=== PATIENT | female | born 1975 | race Caucasian/White ===

== ENCOUNTER → 2017-06-15 | Outpatient (CLI) | payer OTHER ==
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
== END ==
LOC: RAD 14:33
PROVIDERS: ATTEND Nurse Practitioner Family
DX: M54.2 Cervicalgia (principal); M25.561 Pain in right knee; M25.551 Pain in right hip; R07.89 Other chest pain
CPT/HCPCS: 71046; 72040; 72100; 73560

== ENCOUNTER → 2017-07-07 | Outpatient (CLI) | payer OTHER ==
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
== END ==
LOC: RAD 09:38
PROVIDERS: ATTEND Nurse Practitioner Family
DX: S16.1XXD Strain of muscle, fascia and tendon at neck level, subsequent encounter (principal); X58.XXXD Exposure to other specified factors, subsequent encounter; M47.892 Other spondylosis, cervical region
CPT/HCPCS: 72141

== ENCOUNTER 2021-12-08 16:33 | Observation (INO) ==
--- NOTE | 2021-12-08 17:28 | DR.H&P ---
H&P - History & Physical for Day of: H&P Date: 12/08/21 - Chief Complaint Chief Complaint: LEFT SIDE HEADACHE, VISION CHANGES, ELEVATED BLOOD PRESSURE - History of Present Illness History of Present Illness: Pt is 46WF, direct admit from Dr. Davidson's office with co left eye vision impairment and left side headace. Pt co elevated blood pressure, 170/110, pt took catapres and losartan this am. Pt had syncopal epsidoe with new onset CVA, confirmed on MRI, right internal capsule anterior limb lacunar infarct. Pt bs elevated. Pt admitted for treatment of acute illness. - Past Medical History Past Medical History: Arthritis, Hypertension - Past Surgical History Surgical History: Other Additional Surgical History: cervical spine surgery - Social History Does patient currently use any type of tobacco product: No Have you used tobacco products in the last 12 months: No Type of Tobacco Use: None Does any household member use tobacco: No Alcohol Use: None Drug Use: None Risks, benefits, and alternatives of opioids discussed: No - Medications Home Medications: No Known Drug Allergies Allergy (Verified 09/16/18 10:30) - Review of Systems Constitutional: Weakness Eyes: Vision Change (left vision impairment) ENT: No Symptoms Reported Respiratory: SOB with Excertion Cardiovascular: Palpitations, Edema Genitourinary: No Symptoms Reported Musculoskeletal: Neck Pain Neurological: Other (headache) - Physical Exam Vital Signs: Blood Pressure [Left Arm] 116/68 Oriented: Normal Eyes: Blurred Vision (left eye) Ear: Normal Nose: Normal Throat: Normal Respiratory: RLL Diminished, LLL Diminished Cardiovascular: Murmur, Edema : Normal Auscultation: Bowel Sounds: Normal Palpation: Normal Skin: Normal Musculoskeletal: Tender (cspine tender) Psychiatric: Anxiety Affect: Anxious Speech Pattern: Clear, Appropriate - Assessment/Plan (1) Syncope Status: Acute Plan: ADMIT, ADMISSION LABS, EKG AND CHEST XRAY ON ADMISSION. BS MONITORING, BP CONTROL. CARDIAC PROFILE, ASPIRIN, STATIN THERAPY. MRA, CAROTID CTA (2) Intractable cluster headache Status: Acute (3) Hypertensive urgency Status: Acute (4) Diabetes mellitus, new onset Status: Acute - Allergies Allergies/Adverse Reactions: Allergies Allergy/AdvReac Type Severity Reaction Status Date / Time No Known Drug Allergies Allergy Verified 09/16/18 10:30
[2021-12-08 18:31] LABS: BASOPHILS # (AUTO) 0.1 X10^3/uL (0.0-0.1); BASOPHILS % (AUTO) 0.8 % (0.2-1.0); EOSINOPHILS # (AUTO) 0.3 x10^3/uL (0.0-0.2); HEMATOCRIT 37.5 % (36.0-47.0); LYMPHOCYTES # (AUTO) 3.6 X10^3/uL (1.3-2.9); LYMPHOCYTES % (AUTO) 27.4 % (21.0-51.0); MEAN CORPUSCULAR HEMOGLOBIN 31.1 pg (27.0-34.0); MEAN CORPUSCULAR HGB CONC 34.7 g/dL (33.0-35.0); MEAN CORPUSCULAR VOLUME 89.7 fL (80.0-100.0); MONOCYTES % (AUTO) 7.9 % (0.0-13.0); NEUTROPHILS # (AUTO) 8.2 x10^3/uL (2.2-4.8); NEUTROPHILS % (AUTO) 61.9 % (42.0-75.0); RED BLOOD COUNT 4.18 X10^6/uL (3.5-5.4); RED CELL DISTRIBUTION WIDTH 12.7 % (11.6-16.5); WHITE BLOOD COUNT 13.2 X10^3/uL (3.6-10.0)
[2021-12-08 18:34] LABS: ERYTHROCYTE SEDIMENTATION RATE 7 MM/HOUR (0-20)
--- NOTE | 2021-12-08 18:40 | RAD ---
HISTORYRelevant Clinical Information syncope, htnSTUDYCHEST, PA/LAT ADULTCOMPARISONAugust 2020FINDINGSThe trachea is midline. The cardiac silhouette is unremarkable. The lungs are clear without focal infiltrate or effusion. The bony thorax is unremarkable.IMPRESSIONNo acute cardiopulmonary disease.Electronically signed by: DONNA GRAY (Dec 08, 2021 18:38:36)
[2021-12-08 18:42] LABS: ALANINE AMINOTRANSFERASE 28 Units/L (12-78); ALBUMIN 3.3 g/dL (3.4-5.0); ALKALINE PHOSPHATASE 91 Units/L (46-116); ASPARTATE AMINO TRANSFERASE 21 Units/L (15-37); BLOOD UREA NITROGEN 11 mg/dL (7-18); CALCIUM 8.4 mg/dL (8.5-10.1); CARBON DIOXIDE 31.7 mmol/L (21-32); CHLORIDE 105 mmol/L (98-107); CREATINE KINASE 50 Units/L (26-192); CREATININE 0.75 mg/dL (0.55-1.02); MAGNESIUM 1.7 mg/dL (1.7-2.9); SODIUM 141 mmol/L (136-145); TOTAL PROTEIN 6.9 g/dL (6.4-8.2); eGFR NON BLACK RACES > 60 (>60)
[2021-12-08] MEDS: ASPIRIN 81 MG CHEWTAB PO SCH (19:23)
[2021-12-08] MEDS: NS 1,000 ML IV 1,000 ML IV SCH (19:23)
[2021-12-08] MEDS: CELEXA PO SCH (19:23)
[2021-12-08] MEDS: NORVASC TAB 5 MG PO SCH (20:44)
[2021-12-08] MEDS: XANAX PO PRN (20:44)
[2021-12-08] MEDS: LIPITOR TAB 10 MG PO SCH (20:44)
[2021-12-08] MEDS: COZAAR PO SCH (20:44)
[2021-12-08 21:01] LABS: BILIRUBIN,URINE NEGATIVE (NEGATIVE); BLOOD/HEMOGLOBIN,URINE NEGATIVE (NEGATIVE); GLUCOSE, URINE NEGATIVE (NEGATIVE); KETONES,URINE NEGATIVE (NEGATIVE); LEUKOCYTE ESTERASE ,URINE NEGATIVE (NEGATIVE); NITRITES,URINE NEGATIVE (NEGATIVE); PROTEIN,URINE NEGATIVE (NEGATIVE); UROBILINOGEN,URINE NORMAL (NORMAL)
[2021-12-08 21:07] LABS: APPEARANCE,URINE CLEAR (CLEAR); COLOR,URINE YELLOW (YELLOW)
[2021-12-09 06:13] LABS: BASOPHILS # (AUTO) 0.1 X10^3/uL (0.0-0.1); BASOPHILS % (AUTO) 0.8 % (0.2-1.0); EOSINOPHILS # (AUTO) 0.3 x10^3/uL (0.0-0.2); EOSINOPHILS % (AUTO) 3.3 % (0.9-2.9); HEMATOCRIT 36.5 % (36.0-47.0); HEMOGLOBIN 12.9 g/dL (12.0-16.0); LYMPHOCYTES # (AUTO) 3.6 X10^3/uL (1.3-2.9); LYMPHOCYTES % (AUTO) 35.7 % (21.0-51.0); MEAN CORPUSCULAR HEMOGLOBIN 31.6 pg (27.0-34.0); MEAN CORPUSCULAR HGB CONC 35.2 g/dL (33.0-35.0); MEAN CORPUSCULAR VOLUME 89.6 fL (80.0-100.0); MEAN PLATELET VOLUME 8.2 fL (7.4-11.0); MONOCYTES # (AUTO) 0.6 x10^3/uL (0.3-0.8); MONOCYTES % (AUTO) 6.3 % (0.0-13.0); NEUTROPHILS # (AUTO) 5.4 x10^3/uL (2.2-4.8); NEUTROPHILS % (AUTO) 53.9 % (42.0-75.0); RED BLOOD COUNT 4.07 X10^6/uL (3.5-5.4); RED CELL DISTRIBUTION WIDTH 12.8 % (11.6-16.5)
[2021-12-09 06:18] LABS: ALANINE AMINOTRANSFERASE 29 Units/L (12-78); ALBUMIN 3.1 g/dL (3.4-5.0); ALKALINE PHOSPHATASE 80 Units/L (46-116); ASPARTATE AMINO TRANSFERASE 19 Units/L (15-37); BLOOD UREA NITROGEN 9 mg/dL (7-18); CALCIUM 8.1 mg/dL (8.5-10.1); CHLORIDE 104 mmol/L (98-107); COR CA(FOR HYPOALB) 8.8 mg/dL (8.5-10.1); COR NA(FOR HYPERGLY) 139 mmol/L (136-145); CREATININE 0.65 mg/dL (0.55-1.02); SODIUM 139 mmol/L (136-145); TOTAL PROTEIN 6.4 g/dL (6.4-8.2); eGFR NON BLACK RACES > 60 (>60)
[2021-12-09] MEDS: NORVASC TAB 5 MG PO SCH ×2 (09:41→16:42)
[2021-12-09] MEDS: COZAAR PO SCH ×2 (09:41→20:55)
[2021-12-09] MEDS: CELEXA PO SCH ×2 (09:41→16:42)
[2021-12-09] MEDS: ASPIRIN 81 MG CHEWTAB PO SCH ×2 (09:41→16:41)
[2021-12-09] MEDS: NS 1,000 ML IV 1,000 ML IV SCH (09:42)
[2021-12-09] MEDS ORDERED: NS 100 ML IV 100 ML ONE (10:43)
--- NOTE | 2021-12-09 12:42 | MRI ---
HISTORYSYNCOPE, HTN. NEW ONSET CVA.CT BRAIN W/O ON 11/24/21 .. MRI BRAIN W/O ON 12/01/21STUDYMRA HEAD W/O CONCOMPARISONMRI brain 12/01/[address] head 11/24/[id number] MR imaging of the head was performed using standard department protocol.Stenoses are measured using NASCET criteria.FINDINGSVertebral arteries are patent and equal in size. The basilar artery is patent and gives rise to large bilateral posterior cerebral arteries.Neither posterior communicating artery is identified.Distal cervical segment internal carotid arteries are patent. No significant carotid siphon stenosis. Anterior cerebral and middle cerebral arteries are widely patent.Normal anterior communicating artery.There is no large vessel occlusion. No aneurysm or arteriovenous malformation.IMPRESSION1. No significant abnormalityElectronically signed by: Lenard Rahman (Dec 09, 2021 12:41:56)
--- NOTE | 2021-12-09 15:18 | CT ---
HISTORYSYNCOPE, HTNSTUDYCAROTID CTACOMPARISONNone available.TECHNIQUEAxial CT angiography of the carotid arteries with intravenous contrast; 100 mL Isovue 370. Coronal, sagittal and MIP and/or 3D reconstructed images were created for further characterization by the technologist.Radiation dose: 259.90 mGy-cm total DLPFINDINGSRight common carotid artery: No clinically significant stenosis, occlusion or dissection.Right internal carotid artery: No clinically significant stenosis of the extracranial segment. No dissection or occlusion.Right external carotid artery: No occlusion or clinically significant stenosis of the origin.Right vertebral artery: No clinically significant stenosis, occlusion or dissection.Left common carotid artery: No clinically significant stenosis, occlusion or dissection..Left internal carotid artery: No clinically significant stenosis of the extracranial segment. No dissection or occlusion.Left external carotid artery: No occlusion or clinically significant stenosis of the origin.Left vertebral artery: No clinically significant stenosis. No dissection or occlusion.Bones/joints: No acute fracture.Soft tissues: Normal. No significant soft tissue swelling.Lungs: Imaged portion of the lungs are clear of focal airspace disease.IMPRESSIONNo acute abnormality, specifically, no clinically significant stenosis, occlusion or dissection involving the arterial structures of the neck.REFERENCES: NASCET CRITERIA: The degree of internal carotid artery stenosis is based on NASCET criteria. Normal is no stenosis. Mild is less than 50% stenosis. Moderate is 50-69% stenosis. Severe is 70% to 99% stenosis. Total occlusion is no detectable patent lumen.Electronically signed by: Christopher Maldonado (Dec 09, 2021 15:16:46)
[2021-12-09 15:58] VITALS: BMI 39.2
[2021-12-09] MEDS ORDERED: PLAVIX PO SCH (16:00)
--- NOTE | 2021-12-09 20:32 | VAS ---
HISTORYB/L LOWER LEG EDEMASTUDYLOWER EXT VENOUS, BILATERALCOMPARISONNoneTECHNIQUEMultiple galindo scale and color flow Doppler images of the deep venous system were obtained of the right and left lower extremity.FINDINGSThe deep venous system of the right and left lower extremities were evaluated from the level of the common femoral vein through the popliteal vein. Normal color flow and augmentation can be observed. In addition, normal compression is seen throughout the deep venous system.IMPRESSIONNegative for DVT.Electronically signed by: DONNA GRAY (Dec 09, 2021 20:30:37)
[2021-12-09] MEDS: LIPITOR TAB 10 MG PO SCH (20:55)
[2021-12-09] MEDS: XANAX PO PRN (20:56)
[2021-12-09 21:09] VITALS: BP 131/71
== END 2021-12-09 21:30 | disposition home or self-care (01) ==
LOC: MED/SURG
PROVIDERS: ADMIT Internal Medicine; ATTEND Internal Medicine
DX: R55 Syncope and collapse; I16.0 Hypertensive urgency; I10 Essential (primary) hypertension; R60.0 Localized edema; I63.9 Cerebral infarction, unspecified; R79.89 Other specified abnormal findings of blood chemistry; Z20.822 Contact with and (suspected) exposure to COVID-19; H53.8 Other visual disturbances; E11.65 Type 2 diabetes mellitus with hyperglycemia; Z79.899 Other long term (current) drug therapy; G44.001 Cluster headache syndrome, unspecified, intractable

== ENCOUNTER 2023-06-08 12:50 | Observation (INO) ==
[2023-06-08] MEDS ORDERED: NS 1,000 ML IV 1,000 ML IV ONE (13:04)
[2023-06-08] MEDS ORDERED: NS 1,000 ML IV 1,000 ML ONE (13:20)
--- NOTE | 2023-06-08 13:22 | DR.EXTPAIN ---
HPI Time seen Time Seen by Provider: 06/08/23 13:04 Complaint/Symptoms Chief Complaint Doctor Comments: 47 y/o female brought in for evaluation. Was fine yesterday, was at work. Had a syncopal episode while there, remembers being in 1 room, then awoke in her office with people around her. Went to another facility, was evaluated and discharged home. No diagnosis given.. Patient had another syncopal episode today, has not eaten yet this a.m., drank a Coke so far for breakfast. Reportedly hit her head on concrete. Having a left sided headache. Sharp severe, does not radiate. Also with associated neck pain. Denies weakness, numbness. Denies fever, chills, URI symptoms, bowel or bladder issues. No associated nausea or vomiting. Patient is on Plavix and aspirin. Has a history of CVA in 2021. Nurses notes reviewed Nurses Notes Review: Yes Source History Provided: Patient PMH PMH Past Medical History: Arthritis and Hypertension Past Surgical History: Yes Surgical History: Ortho Surgery Family History Family Medical History: Cancer and Hypertension Social History Does patient currently use any type of tobacco product: No Alcohol Use: None Do you use any recreational Drugs:: No ROS Review of Systems Constitutional: No Symptoms Reported Eyes: No Symptoms Reported ENTM: No Symptoms Reported Respiratoy: No Symptoms Reported Cardiovascular: No Symptoms Reported Gastrointestinal/Abdominal: No Symptoms Reported Genitourinary: No Symptoms Reported Neurological: Headache Musculoskeletal: No Symptoms Reported Integumentary: No Symptoms Reported Hematologic/Lymphatic: No Symptoms Reported All Other Systems: Reviewed and Negative PE Vital Signs Vitals: Vital Signs Temperature 98.4 F Pulse Rate 76 Pulse Rate 76 Pulse Rate 80 Pulse Rate 79 Pulse Rate 72 Pulse Rate 79 Pulse Rate 76 Pulse Rate 74 Pulse Rate 77 Pulse Rate 76 Pulse Rate 73 Pulse Rate 75 Pulse Rate 74 Pulse Rate 71 Pulse Rate 82 Pulse Rate 81 Pulse Rate 77 Pulse Rate 88 Respiratory Rate 14 Respiratory Rate 14 Respiratory Rate 20 Respiratory Rate 19 Respiratory Rate 13 Respiratory Rate 22 Respiratory Rate 22 Respiratory Rate 37 Respiratory Rate 20 Respiratory Rate 17 Respiratory Rate 25 Respiratory Rate 24 Respiratory Rate 21 Respiratory Rate 29 Respiratory Rate 18 Respiratory Rate 18 Respiratory Rate 17 Respiratory Rate 19 Respiratory Rate 16 Blood Pressure 124/80 Blood Pressure 124/80 Blood Pressure 137/82 Blood Pressure 137/82 Blood Pressure 132/81 Blood Pressure 95/49 Blood Pressure 132/79 Blood Pressure 118/75 Blood Pressure 117/71 Blood Pressure 117/77 Blood Pressure 118/76 Blood Pressure 117/70 Blood Pressure 126/79 O2 Sat by Pulse Oximetry 98 O2 Sat by Pulse Oximetry 98 O2 Sat by Pulse Oximetry 99 O2 Sat by Pulse Oximetry 97 O2 Sat by Pulse Oximetry 98 O2 Sat by Pulse Oximetry 97 O2 Sat by Pulse Oximetry 96 O2 Sat by Pulse Oximetry 99 O2 Sat by Pulse Oximetry 97 O2 Sat by Pulse Oximetry 95 O2 Sat by Pulse Oximetry 94 O2 Sat by Pulse Oximetry 95 O2 Sat by Pulse Oximetry 97 O2 Sat by Pulse Oximetry 97 O2 Sat by Pulse Oximetry 99 O2 Sat by Pulse Oximetry 99 O2 Sat by Pulse Oximetry 96 O2 Sat by Pulse Oximetry 98 General General Appearance: Alert and In No Apparent Distress Head Head Exam: Normal Inspection, Atraumatic and Normocephalic Eyes Eye exam: PERRL, EOMI and Other (no photophobia) ENT ENT Exam: Normal Oropharynx, Mucous Membranes Moist and TM's Normal Bilaterally Neck Neck Exam: Tenderness (paracervical muscles) COURSE Treatment Treatment: 47-year-old female with 2 episodes of syncope in the past 2 days. Had a workup at another ER yesterday, reportedly normal. Physical exam current ly benign. Workup initiated here. Patient given IV fluids. Given IV Zofran, Toradol, morphine. 1543 -labs acceptable. Has a normal CBC, CMP, lipase, troponin. Urinalysis unremarkable. Chest x-ray unremarkable. CT of the head and cervical spine do not show any acute abnormalities. Patient has a distant CVA in the past, on Plavix and aspirin. States she had syncope as presenting symptom with her previous stroke, with associated speech and vision disorder after coming to. Patient's attending trying to arrange an MRI of the brain. Would be concerned about heart issues, possible arrhythmia versus blood pressure problem. Patient remains stable here. Presented patient to her covering attending, Dr. Davidson. Would like to admit the patient overnight to the hospital to keep her on a nuclear monitoring technician. [facility] Labs Reviewed 06/08/23 13:17 06/08/23 13:17 Laboratory: WBC 8.9 X10^3/uL (3.6-10.0) 06/08/23 13:17 RBC 4.60 X10^6/uL (3.5-5.4) 06/08/23 13:17 Hgb 13.9 g/dL (12.0-16.0) 06/08/23 13:17 Hct 41.0 % (36.0-47.0) 06/08/23 13:17 MCV 89.2 fL (80.0-100.0) 06/08/23 13:17 MCH 30.3 pg (27.0-34.0) 06/08/23 13:17 MCHC 33.9 g/dL (33.0-35.0) 06/08/23 13:17 RDW 12.9 % (11.6-16.5) 06/08/23 13:17 Plt Count 281 X10^3/uL (150.0-450.0) 06/08/23 13:17 MPV 8.0 fL (7.4-11.0) 06/08/23 13:17 Neut % (Auto) 51.2 % (42.0-75.0) 06/08/23 13:17 Lymph % (Auto) 35.6 % (21.0-51.0) 06/08/23 13:17 [place] % (Auto) 6.7 % (0.0-13.0) 06/08/23 13:17 Eos % (Auto) 5.4 % (0.9-2.9) H 06/08/23 13:17 Baso % (Auto) 1.1 % (0.2-1.0) H 06/08/23 13:17 Neut # (Auto) 4.6 x10^3/uL (2.2-4.8) 06/08/23 13:17 Lymph # (Auto) 3.2 X10^3/uL (1.3-2.9) H 06/08/23 13:17 [place] # (Auto) 0.6 x10^3/uL (0.3-0.8) 06/08/23 13:17 Eos # (Auto) 0.5 x10^3/uL (0.0-0.2) H 06/08/23 13:17 Baso # (Auto) 0.1 X10^3/uL (0.0-0.1) 06/08/23 13:17 Absolute Nucleated RBC 0.0 /100WBC 06/08/23 13:17 Sodium 137 mmol/L (136-145) 06/08/23 13:17 Corrected Sodium TNP 06/08/23 13:17 Potassium 3.5 mmol/L (3.5-5.1) 06/08/23 13:17 Chloride 101 mmol/L (98-107) 06/08/23 13:17 Carbon Dioxide 32.4 mmol/L (21-32) H 06/08/23 13:17 BUN 10 mg/dL (7-18) 06/08/23 13:17 Creatinine 0.93 mg/dL (0.55-1.02) 06/08/23 13:17 Est GFR (MDRD) Af Amer > 60 (>60) 06/08/23 13:17 Est GFR (MDRD) Non-Af > 60 (>60) 06/08/23 13:17 Glucose 83 mg/dL (65-99) 06/08/23 13:17 Calcium 8.4 mg/dL (8.5-10.1) L 06/08/23 13:17 Corrected Calcium TNP 06/08/23 13:17 Total Bilirubin 0.60 mg/dL (0.2-1.0) 06/08/23 13:17 AST 13 Units/L (15-37) L 06/08/23 13:17 ALT 18 Units/L (12-78) 06/08/23 13:17 Alkaline Phosphatase 83 Units/L (46-116) 06/08/23 13:17 Troponin I High Sens 4.1 ng/L (4.0-60.0) 06/08/23 13:17 Total Protein 7.0 g/dL (6.4-8.2) 06/08/23 13:17 Albumin 3.4 g/dL (3.4-5.0) 06/08/23 13:17 Globulin 3.6 g/dL (2.5-4.5) 06/08/23 13:17 Albumin/Globulin Ratio 0.9 Ratio (1.1-2.1) L 06/08/23 13:17 Lipase 24 Units/L (16-77) 06/08/23 13:17 Specimen Type Clean catch urine 06/08/23 14:11 Urine Color Straw (YELLOW) 06/08/23 14:11 Urine Appearance Clear (CLEAR) 06/08/23 14:11 Urine pH 6.0 (5.0 - 8.0) 06/08/23 14:11 Ur Specific [place] 1.010 (1.000-1.030) 06/08/23 14:11 Urine Protein Negative (NEGATIVE) 06/08/23 14:11 Urine Glucose (UA) Negative (NEGATIVE) 06/08/23 14:11 Urine Ketones Negative (NEGATIVE) 06/08/23 14:11 Urine Blood Negative (NEGATIVE) 06/08/23 14:11 Urine Nitrite Negative (NEGATIVE) 06/08/23 14:11 Urine Bilirubin Negative (NEGATIVE) 06/08/23 14:11 Urine Urobilinogen Normal (NORMAL) 06/08/23 14:11 Ur Leukocyte Esterase Negative (NEGATIVE) 06/08/23 14:11 Opioid Opioid Risk Tool Age ([place] if 16-45): No History of Preadolescent Sexual Abuse: No Total: 0 Total Score Risk Category: Low Risk Copyright: Carlos predicting aberrant behaviors Discharge Plan Diagnosis Discharge Problem: Recurrent syncope Discharge Plan Patient Disposition: 09 ADMITTED INPATIENT Condition: Stable Prescriptions: No Action atorvastatin 10 mg tablet 10 mg PO QDAY alprazolam 1 mg tablet 1 mg PO DAILY PRN clopidogrel 75 mg tablet 75 mg PO QDAY amlodipine 5 mg tablet 5 mg PO QDAY citalopram 20 mg tablet 20 mg PO QDAY amitriptyline 25 mg tablet 25 mg PO QPM pantoprazole 40 mg tablet,delayed release (DR/EC) 40 mg PO BID losartan 100 mg tablet 100 mg PO QDAY Mounjaro 12.5 mg/0.5 mL pen injector 12.5 mg SUBCUT QWEEK Patient Comments: [NO ORIGINAL SIG] aspirin 81 mg Tablet,Chewable 81 mg PO QDAY clonidine HCl 0.1 mg tablet 0.1 mg PO QDAY PRN (Reason: hypertensive emergency) Qty: 30 0RF potassium chloride 8 mEq Capsule, Extended Release 8 meq PO QDAY PRN hydrochlorothiazide 25 mg Tablet 25 mg PO QAM PRN (Reason: Edema) Health Concerns: Post Hospitalization: new medications and changes needed to prevent readmission or further decline. Pt educated and given instructions on all concerns. Plan of Treatment: Continue with present treatment and follow up plan. Pt is to keep follow up appointment as instructed and take medications as ordered. Orders to Discharge Patient Discharge Orders: Transfer (Routine); Ordered 06/08/23 Ordered By: Constantin Maza Follow ups/Referrals Follow ups/Referrals: KATELYNN DAVIDSON [Primary Care Provider] - 3 days
[2023-06-08 13:33] LABS: BASOPHILS # (AUTO) 0.1 X10^3/uL (0.0-0.1); BASOPHILS % (AUTO) 1.1 % (0.2-1.0); EOSINOPHILS # (AUTO) 0.5 x10^3/uL (0.0-0.2); EOSINOPHILS % (AUTO) 5.4 % (0.9-2.9); HEMOGLOBIN 13.9 g/dL (12.0-16.0); LYMPHOCYTES # (AUTO) 3.2 X10^3/uL (1.3-2.9); LYMPHOCYTES % (AUTO) 35.6 % (21.0-51.0); MEAN CORPUSCULAR HEMOGLOBIN 30.3 pg (27.0-34.0); MEAN CORPUSCULAR HGB CONC 33.9 g/dL (33.0-35.0); MEAN CORPUSCULAR VOLUME 89.2 fL (80.0-100.0); MONOCYTES # (AUTO) 0.6 x10^3/uL (0.3-0.8); MONOCYTES % (AUTO) 6.7 % (0.0-13.0); NEUTROPHILS # (AUTO) 4.6 x10^3/uL (2.2-4.8); NEUTROPHILS % (AUTO) 51.2 % (42.0-75.0); PLATELET COUNT 281 X10^3/uL (150.0-450.0); RED CELL DISTRIBUTION WIDTH 12.9 % (11.6-16.5); WHITE BLOOD COUNT 8.9 X10^3/uL (3.6-10.0)
[2023-06-08 13:47] LABS: ALANINE AMINOTRANSFERASE 18 Units/L (12-78); ALBUMIN 3.4 g/dL (3.4-5.0); ALKALINE PHOSPHATASE 83 Units/L (46-116); ASPARTATE AMINO TRANSFERASE 13 Units/L (15-37); BLOOD UREA NITROGEN 10 mg/dL (7-18); CALCIUM 8.4 mg/dL (8.5-10.1); CARBON DIOXIDE 32.4 mmol/L (21-32); CHLORIDE 101 mmol/L (98-107); CREATININE 0.93 mg/dL (0.55-1.02); GLUCOSE 83 mg/dL (65-99); LIPASE 24 Units/L (16-77); POTASSIUM 3.5 mmol/L (3.5-5.1); SODIUM 137 mmol/L (136-145); eGFR NON BLACK RACES > 60 (>60)
--- NOTE | 2023-06-08 13:55 | CT ---
EXAM:HEAD (TRAUMA)HISTORY:SYNCOPE, PAIN, FALL;COMPARISON:CT head and MRI brain from 11/24/2021 and 12/01/2021 respectivelyTECHNIQUE:Multiple axial images of the head were performed from the skullbase to the vertex using standard departmental protocol. Sagittal and coronal reformatted images were performed. Dose reduction techniques including Automated Exposure Control (AEC) and adjustment of mA and kV were utilized.FINDINGS:Limitations: None significant.Ventricles and cisterns: Patent. Normal in size for age.Brain parenchyma: No parenchymal mass or hematoma. [place]-white differentiation appears preserved. Chronic right anterior limb internal capsule lacunar infarct. Mild low-attenuation change in the subcortical and deep supratentorial white matter.Extra-axial: No extra-axial collection.Orbits: The globes are intact.Sinuses: No air-fluid levels in the paranasal sinuses. No paranasal sinus wall thickening or sclerosis. The mastoid air cells are clear.Bones: The calvarium is intact.IMPRESSION:No acute intracranial abnormality.THIS IS AN ELECTRONICALLY VERIFIED FINAL REPORT06/08/2023 1:51 PM - Electronically signed by Mac Riley MD
--- NOTE | 2023-06-08 13:59 | CT ---
EXAM:CT CERVICAL SPINE WITHOUT CONTRASTHISTORY:SYNCOPE, PAIN, FALL; .COMPARISON:None.TECHNIQUE:Axial CT images were obtained through the cervical spine without contrast. Coronal and sagittal reformations were post processed.All CT scans at this facility use dose modulation, iterative reconstruction, and/or weight based dosing when appropriate to reduce radiation dose to as low as reasonably achievable.FINDINGS:C-SPINE: Previous fusion anteriorly at C5-6. Mild degenerative changes at C3-4 and C4-5. No acute fracture or dislocation. Loss of cervical lordosis.SURROUNDING SOFT TISSUES: Within normal limits.LUNG APICES: Within normal limits.IMPRESSION:No evidence of acute findings on cervical spine exam.THIS IS AN ELECTRONICALLY VERIFIED FINAL REPORT06/08/2023 1:56 PM - Electronically signed by Neno Santos MD
[2023-06-08 14:04] VITALS: BMI 31.7
--- NOTE | 2023-06-08 14:10 | RAD ---
EXAM: CHEST, 1 VIEW HISTORY: SYNCOPE, PAIN, FALL; COMPARISON: Prior study or studies were utilized for comparison during interpretation with the most relevant linda ed 12/08/2021 TECHNIQUE: CHEST, 1 VIEW FINDINGS: Chest: Lines and tubes: Cardiac leads overlie the chest. Mediastinum: Cardiac and mediastinal shadow is within normal limits for size and contour. Pulmonary vessels: No pulmonary vascular congestion. Lung rodriguez: No suspicious airspace opacity. Pleura: No effusion. No pneumothorax. Bones and soft tissues: No acute osseous or soft tissue abnormality. IMPRESSION: 1. No acute cardiopulmonary abnormality THIS IS AN ELECTRONICALLY VERIFIED FINAL REPORT 06/08/2023 2:07 PM - Electronically signed by Willem Vaughn MD
[2023-06-08 14:20] LABS: BILIRUBIN,URINE NEGATIVE (NEGATIVE); BLOOD/HEMOGLOBIN,URINE NEGATIVE (NEGATIVE); GLUCOSE, URINE NEGATIVE (NEGATIVE); KETONES,URINE NEGATIVE (NEGATIVE); LEUKOCYTE ESTERASE ,URINE NEGATIVE (NEGATIVE); NITRITES,URINE NEGATIVE (NEGATIVE); PROTEIN,URINE NEGATIVE (NEGATIVE); UROBILINOGEN,URINE NORMAL (NORMAL)
[2023-06-08 14:24] LABS: APPEARANCE,URINE CLEAR (CLEAR); COLOR,URINE STRAW (YELLOW)
[2023-06-08] MEDS ORDERED: TORADOL 30 MG VIAL IVP ONE (14:33)
[2023-06-08] MEDS ORDERED: ZOFRAN INJ 4 MG VIAL IVP ONE (14:33)
[2023-06-08] MEDS ORDERED: MORPHINE SULFATE INJ 4 MG IVP ONE (14:33)
[2023-06-08] MEDS ORDERED: TORADOL 30 MG VIAL ONE (14:36)
[2023-06-08] MEDS ORDERED: MORPHINE SULFATE INJ 4 MG ONE (14:36)
[2023-06-08] MEDS ORDERED: ZOFRAN INJ 4 MG VIAL ONE (14:36)
[2023-06-08] MEDS ORDERED: PATIENT'S HOME MEDICATION (Alprazolam 1 mg tablet) PO PRN (17:41)
[2023-06-08] MEDS ORDERED: XANAX PO PRN (17:44)
[2023-06-08] MEDS ORDERED: CONSULT PHARMACY - POTASSIUM & MAGNESIUM XX SCH (18:00)
--- NOTE | 2023-06-08 18:08 | DR.H&P ---
H&P History & Physical for Day of: H&P Date: 06/08/23 Chief Complaint Chief Complaint: PASSED OUT Allergies Allergies Allergy/AdvReac Type Severity Reaction Status Date / Time No Known Drug Allergies Allergy Verified 09/16/18 10:30 History of Present Illness History of Present Illness: 47 y/o female, ER admission after presenting for syncope. Pt was fine yesterday, was at work. Had a syncopal episode while there, remembers being in 1 room, then awoke in her office with people around her. Went to another [facility] and was evaluated and discharged home. No diagnosis given. Patient had another syncopal episode today, has not eaten yet this a.m., drank a Coke so far for breakfast. Reportedly hit her head on concrete. Having a left sided headache. Sharp severe, does not radiate. Also with associated neck pain. Denies weakness, numbness. Denies fever, chills, URI symptoms, bowel or bladder issues. No associated nausea or vomiting. Patient is on Plavix and aspirin. Has a history of CVA in 2021. Past Medical History Past Medical History: Arthritis and Hypertension Past Surgical History Surgical History: Ortho Surgery Additional Surgical History: cervical spine surgery Family History Family Medical History: Cancer and Hypertension Social History Does patient currently use any type of tobacco product: No Have you used tobacco products in the last 12 months: No Type of Tobacco Use: None Alcohol Use: None Medications Home Medications: Home Medications Medication Instructions Recorded Confirmed Type hydrochlorothiazide 25 mg tablet 25 mg PO QAM PRN Edema 12/09/21 06/08/23 History potassium chloride 8 mEq 8 meq PO QDAY PRN 12/09/21 06/08/23 History capsule,extended release alprazolam 1 mg tablet 1 mg PO DAILY PRN 06/08/23 06/08/23 History amitriptyline 25 mg tablet 25 mg PO QPM 06/08/23 06/08/23 History amlodipine 5 mg tablet 5 mg PO QDAY 06/08/23 06/08/23 History aspirin 81 mg chewable tablet 81 mg PO QDAY 06/08/23 06/08/23 History atorvastatin 10 mg tablet 10 mg PO QDAY 06/08/23 06/08/23 History citalopram 20 mg tablet 20 mg PO QDAY 06/08/23 06/08/23 History clopidogrel 75 mg tablet 75 mg PO QDAY 06/08/23 06/08/23 History losartan 100 mg tablet 100 mg PO QDAY 06/08/23 06/08/23 History pantoprazole 40 mg tablet,delayed 40 mg PO BID 06/08/23 06/08/23 History release tirzepatide 12.5 mg/0.5 mL 12.5 mg subcut QWEEK 06/08/23 06/08/23 History subcutaneous pen injector (Mounjaro) Labs 06/08/23 13:17 06/08/23 13:17 Labs: Laboratory WBC 8.9 X10^3/uL (3.6-10.0) 06/08/23 13:17 RBC 4.60 X10^6/uL (3.5-5.4) 06/08/23 13:17 Hgb 13.9 g/dL (12.0-16.0) 06/08/23 13:17 Hct 41.0 % (36.0-47.0) 06/08/23 13:17 MCV 89.2 fL (80.0-100.0) 06/08/23 13:17 MCH 30.3 pg (27.0-34.0) 06/08/23 13:17 MCHC 33.9 g/dL (33.0-35.0) 06/08/23 13:17 RDW 12.9 % (11.6-16.5) 06/08/23 13:17 Plt Count 281 X10^3/uL (150.0-450.0) 06/08/23 13:17 MPV 8.0 fL (7.4-11.0) 06/08/23 13:17 Neut % (Auto) 51.2 % (42.0-75.0) 06/08/23 13:17 Lymph % (Auto) 35.6 % (21.0-51.0) 06/08/23 13:17 Rice % (Auto) 6.7 % (0.0-13.0) 06/08/23 13:17 Eos % (Auto) 5.4 % (0.9-2.9) H 06/08/23 13:17 Baso % (Auto) 1.1 % (0.2-1.0) H 06/08/23 13:17 Neut # (Auto) 4.6 x10^3/uL (2.2-4.8) 06/08/23 13:17 Lymph # (Auto) 3.2 X10^3/uL (1.3-2.9) H 06/08/23 13:17 Rice # (Auto) 0.6 x10^3/uL (0.3-0.8) 06/08/23 13:17 Eos # (Auto) 0.5 x10^3/uL (0.0-0.2) H 06/08/23 13:17 Baso # (Auto) 0.1 X10^3/uL (0.0-0.1) 06/08/23 13:17 Absolute Nucleated RBC 0.0 /100WBC 06/08/23 13:17 Sodium 137 mmol/L (136-145) 06/08/23 13:17 Corrected Sodium TNP 06/08/23 13:17 Potassium 3.5 mmol/L (3.5-5.1) 06/08/23 13:17 Chloride 101 mmol/L (98-107) 06/08/23 13:17 Carbon Dioxide 32.4 mmol/L (21-32) H 06/08/23 13:17 BUN 10 mg/dL (7-18) 06/08/23 13:17 Creatinine 0.93 mg/dL (0.55-1.02) 06/08/23 13:17 Est GFR (MDRD) Af Amer > 60 (>60) 06/08/23 13:17 Est GFR (MDRD) Non-Af > 60 (>60) 06/08/23 13:17 Glucose 83 mg/dL (65-99) 06/08/23 13:17 Calcium 8.4 mg/dL (8.5-10.1) L 06/08/23 13:17 Corrected Calcium TNP 06/08/23 13:17 Total Bilirubin 0.60 mg/dL (0.2-1.0) 06/08/23 13:17 AST 13 Units/L (15-37) L 06/08/23 13:17 ALT 18 Units/L (12-78) 06/08/23 13:17 Alkaline Phosphatase 83 Units/L (46-116) 06/08/23 13:17 Troponin I High Sens 4.1 ng/L (4.0-60.0) 06/08/23 13:17 Total Protein 7.0 g/dL (6.4-8.2) 06/08/23 13:17 Albumin 3.4 g/dL (3.4-5.0) 06/08/23 13:17 Globulin 3.6 g/dL (2.5-4.5) 06/08/23 13:17 Albumin/Globulin Ratio 0.9 Ratio (1.1-2.1) L 06/08/23 13:17 Lipase 24 Units/L (16-77) 06/08/23 13:17 Specimen Type Clean catch urine 06/08/23 14:11 Urine Color Straw (YELLOW) 06/08/23 14:11 Urine Appearance Clear (CLEAR) 06/08/23 14:11 Urine pH 6.0 (5.0 - 8.0) 06/08/23 14:11 Ur Specific [place] 1.010 (1.000-1.030) 06/08/23 14:11 Urine Protein Negative (NEGATIVE) 06/08/23 14:11 Urine Glucose (UA) Negative (NEGATIVE) 06/08/23 14:11 Urine Ketones Negative (NEGATIVE) 06/08/23 14:11 Urine Blood Negative (NEGATIVE) 06/08/23 14:11 Urine Nitrite Negative (NEGATIVE) 06/08/23 14:11 Urine Bilirubin Negative (NEGATIVE) 06/08/23 14:11 Urine Urobilinogen Normal (NORMAL) 06/08/23 14:11 Ur Leukocyte Esterase Negative (NEGATIVE) 06/08/23 14:11 Review of Systems Constitutional: Weakness Eyes: Vision Change ENT: No Symptoms Reported Respiratory: No Symptoms Reported Cardiovascular: No Symptoms Reported Gastrointestinal: No Symptoms Reported Genitourinary: No Symptoms Reported Musculoskeletal: Neck Pain Skin: No Symptoms Reported Neurological: Weakness and Other (headache, syncope) Physical Exam Vital Signs: Vital Signs Temperature 98.4 F Pulse Rate 74 Pulse Rate 76 Pulse Rate 76 Pulse Rate 80 Pulse Rate 79 Pulse Rate 72 Pulse Rate 79 Pulse Rate 76 Pulse Rate 74 Pulse Rate 77 Pulse Rate 76 Pulse Rate 73 Pulse Rate 75 Pulse Rate 74 Pulse Rate 71 Pulse Rate 82 Pulse Rate 81 Pulse Rate 77 Pulse Rate 88 Respiratory Rate 17 Respiratory Rate 14 Respiratory Rate 14 Respiratory Rate 20 Respiratory Rate 19 Respiratory Rate 13 Respiratory Rate 22 Respiratory Rate 22 Respiratory Rate 37 Respiratory Rate 20 Respiratory Rate 17 Respiratory Rate 25 Respiratory Rate 18 Respiratory Rate 24 Respiratory Rate 18 Respiratory Rate 21 Respiratory Rate 29 Respiratory Rate 18 Respiratory Rate 18 Respiratory Rate 17 Respiratory Rate 19 Respiratory Rate 16 Blood Pressure 124/80 Blood Pressure 124/80 Blood Pressure 124/80 Blood Pressure 137/82 Blood Pressure 137/82 Blood Pressure 132/81 Blood Pressure 95/49 Blood Pressure 132/79 Blood Pressure 118/75 Blood Pressure 117/71 Blood Pressure 117/77 Blood Pressure 118/76 Blood Pressure 117/70 Blood Pressure 126/79 O2 Sat by Pulse Oximetry 98 O2 Sat by Pulse Oximetry 98 O2 Sat by Pulse Oximetry 98 O2 Sat by Pulse Oximetry 99 O2 Sat by Pulse Oximetry 97 O2 Sat by Pulse Oximetry 98 O2 Sat by Pulse Oximetry 97 O2 Sat by Pulse Oximetry 96 O2 Sat by Pulse Oximetry 99 O2 Sat by Pulse Oximetry 97 O2 Sat by Pulse Oximetry 95 O2 Sat by Pulse Oximetry 94 O2 Sat by Pulse Oximetry 95 O2 Sat by Pulse Oximetry 97 O2 Sat by Pulse Oximetry 97 O2 Sat by Pulse Oximetry 99 O2 Sat by Pulse Oximetry 99 O2 Sat by Pulse Oximetry 96 O2 Sat by Pulse Oximetry 98 Oriented: Time and Place Eyes: Normal Ear: Normal Nose: Normal Throat: Dry Respiratory: Clear Throughout Cardiovascular: Normal Auscultation: Bowel Sounds: Normal Palpation: Normal Tenderness: Normal Skin: Normal Musculoskeletal: Tender (perispinal, c spine) Psychiatric: Anxiety Affect: Anxious Speech Pattern: Clear and Appropriate Assessment/Plan (1) Recurrent syncope: Narrative Support Text: admit, ct head on admission CE and BP and BS control Cardiac monitoring, MRI brain in the AM verify home medications telemetry Status: Acute (2) Hypertension: Qualifiers: Hypertension type: essential hypertension Qualified Code(s): I10 - Essential (primary) hypertension Status: Acute (3) Headache: Qualifiers: Headache chronicity pattern: acute headache Headache type: unspecified Intractability: intractable Qualified Code(s): R51 - Headache Status: Acute (4) Diabetes 1.5, managed as type 2: Status: Acute (5) History of CVA (cerebrovascular accident): Status: Acute (6) AVILA (generalized anxiety disorder): Status: Acute
[2023-06-08] MEDS: TYLENOL 325 MG TAB PO PRN (20:13)
[2023-06-08] MEDS: MAG-OX TAB PO SCH ×2 (20:13→21:14)
[2023-06-08] MEDS: PROTONIX TAB 40 MG PO SCH (20:14)
[2023-06-08] MEDS ORDERED: ELAVIL PO SCH (21:00)
[2023-06-08] MEDS ORDERED: K-DUR TAB 20 MEQ PO SCH (21:00)
[2023-06-08] MEDS ORDERED: XANAX PO SCH (21:00)
[2023-06-08] MEDS ORDERED: MAG-OX TAB ONE (21:09)
[2023-06-09 06:36] LABS: BASOPHILS # (AUTO) 0.1 X10^3/uL (0.0-0.1); BASOPHILS % (AUTO) 1.2 % (0.2-1.0); EOSINOPHILS # (AUTO) 0.5 x10^3/uL (0.0-0.2); EOSINOPHILS % (AUTO) 6.4 % (0.9-2.9); HEMATOCRIT 39.3 % (36.0-47.0); HEMOGLOBIN 13.3 g/dL (12.0-16.0); LYMPHOCYTES # (AUTO) 3.3 X10^3/uL (1.3-2.9); LYMPHOCYTES % (AUTO) 41.5 % (21.0-51.0); MEAN CORPUSCULAR HEMOGLOBIN 30.4 pg (27.0-34.0); MEAN CORPUSCULAR VOLUME 89.6 fL (80.0-100.0); MEAN PLATELET VOLUME 7.7 fL (7.4-11.0); MONOCYTES # (AUTO) 0.7 x10^3/uL (0.3-0.8); MONOCYTES % (AUTO) 8.2 % (0.0-13.0); NEUTROPHILS # (AUTO) 3.4 x10^3/uL (2.2-4.8); NEUTROPHILS % (AUTO) 42.7 % (42.0-75.0); PLATELET COUNT 257 X10^3/uL (150.0-450.0); RED BLOOD COUNT 4.38 X10^6/uL (3.5-5.4); RED CELL DISTRIBUTION WIDTH 12.9 % (11.6-16.5)
[2023-06-09 07:03] LABS: ALANINE AMINOTRANSFERASE 16 Units/L (12-78); ALKALINE PHOSPHATASE 76 Units/L (46-116); ASPARTATE AMINO TRANSFERASE 13 Units/L (15-37); BLOOD UREA NITROGEN 13 mg/dL (7-18); CALCIUM 8.2 mg/dL (8.5-10.1); CARBON DIOXIDE 30.2 mmol/L (21-32); CHLORIDE 106 mmol/L (98-107); CREATINE KINASE 23 Units/L (26-192); CREATININE 0.89 mg/dL (0.55-1.02); GLUCOSE 86 mg/dL (65-99); POTASSIUM 4.2 mmol/L (3.5-5.1); SODIUM 141 mmol/L (136-145); TOTAL PROTEIN 6.4 g/dL (6.4-8.2); eGFR NON BLACK RACES > 60 (>60)
[2023-06-09] MEDS ORDERED: MORPHINE SULFATE INJ 2 MG INJ IVP PRN (07:10)
[2023-06-09] MEDS ORDERED: NORCO 5/325 MG TAB PO PRN (07:10)
[2023-06-09] MEDS ORDERED: NORCO 5/325 MG TAB ONE (07:12)
[2023-06-09] MEDS ORDERED: MORPHINE SULFATE INJ 2 MG INJ ONE (07:18)
[2023-06-09] MEDS ORDERED: ZOFRAN INJ 4 MG VIAL ONE (07:18)
[2023-06-09] MEDS ORDERED: ZOFRAN INJ 4 MG VIAL IVP PRN (07:19)
[2023-06-09 07:21] LABS: MAGNESIUM 2.2 mg/dL (2.0-2.9)
[2023-06-09 07:39] VITALS: TEMP 98.1
[2023-06-09] MEDS ORDERED: PROTONIX TAB 40 MG PO ONE (08:06)
[2023-06-09] MEDS ORDERED: ALPRAZOLAM ODT ONE (08:06)
[2023-06-09] MEDS ORDERED: NORVASC TAB 5 MG ONE (08:06)
[2023-06-09] MEDS ORDERED: PLAVIX ONE (08:06)
[2023-06-09] MEDS ORDERED: ASPIRIN 81 MG CHEWTAB ONE (08:06)
[2023-06-09] MEDS: PROTONIX TAB 40 MG PO SCH (08:12)
[2023-06-09] MEDS: COZAAR PO SCH ×2 (08:13→08:14)
[2023-06-09] MEDS ORDERED: ALPRAZOLAM ODT PO PRN (08:27)
[2023-06-09] MEDS ORDERED: ASPIRIN 81 MG CHEWTAB PO SCH (09:00)
[2023-06-09] MEDS ORDERED: PATIENT'S HOME MEDICATION (Losartan 100 mg tablet) PO SCH (09:00)
[2023-06-09] MEDS ORDERED: PLAVIX PO SCH (09:00)
[2023-06-09] MEDS ORDERED: ALPRAZOLAM ODT PO SCH (09:00)
[2023-06-09] MEDS ORDERED: LIPITOR TAB 10 MG PO SCH (09:00)
[2023-06-09] MEDS ORDERED: CELEXA PO SCH (09:00)
[2023-06-09] MEDS ORDERED: NORVASC TAB 5 MG PO SCH (09:00)
[2023-06-09 12:41] VITALS: BP 101/59; PULSE 74; O2SAT 98
[2023-06-09] MEDS ORDERED: TYLENOL 325 MG TAB PO ONE (12:41)
[2023-06-09 12:44] VITALS: RESP 20
[2023-06-09] MEDS: TYLENOL 325 MG TAB PO PRN (12:44)
--- NOTE | 2023-06-09 14:43 | MRI ---
EXAM:BRAIN W/O CONHISTORY:syncope, hx cva;COMPARISON:CT head from 06/08/2023. MRI brain from 12/01/2021.TECHNIQUE:Multiplanar multi-sequence MRI of the brain was obtained utilizing standard departmental protocol. Sagittal and axial T1 weighted images were obtained. Axial T2 and flair weighted images were performed as well. Axial diffusion weighted and ADC trace mapping was performed.FINDINGS:Mildly suboptimal image noise on the axial FLAIR and T2 sequences.Diffusion imaging: Normal, no acute infarct.Susceptibility weighted imaging: No abnormal susceptibility artifact.Brain volume: Appropriate for age.Ventricles and basal cisterns: Normal for age.Extra-axial spaces: No extra-axial collection.Cerebral parenchyma: No mass, hematoma, or mass effect. Mild moderate amount of T2 and FLAIR hyperintensities in the subcortical and deep supratentorial white matter. Small chronic anterior limb internal capsule lacunar infarct.Pituitary and other sagittal midline structures: Normal.Visualized orbits: Normal.Paranasal sinuses and mastoid air cells: Clear.Bones: Intact.Other: None.IMPRESSION:No abnormal restricted diffusion to suggest acute infarct.Stable mild to moderate T2 and FLAIR hyperintensities in the subcortical and deep supratentorial white matter, most commonly attributed to chronic small vessel disease but other etiologies such as demyelinating disease not excluded.THIS IS AN ELECTRONICALLY VERIFIED FINAL REPORT06/09/2023 2:19 PM - Electronically signed by Mac Riley MD
== END 2023-06-09 15:45 | disposition home or self-care (01) ==
LOC: ER 12:50 → U 12:50
PROVIDERS: ADMIT Internal Medicine; ATTEND Internal Medicine
DX: R55 Syncope and collapse; Z86.73 Personal history of transient ischemic attack (TIA), and cerebral infarction without residual deficits; Z79.01 Long term (current) use of anticoagulants; E11.65 Type 2 diabetes mellitus with hyperglycemia; F41.1 Generalized anxiety disorder; I10 Essential (primary) hypertension; M50.30 Other cervical disc degeneration, unspecified cervical region; G43.809 Other migraine, not intractable, without status migrainosus; K21.9 Gastro-esophageal reflux disease without esophagitis

== ENCOUNTER 2024-05-11 10:33 | Observation (INO) ==
[2024-05-11] MEDS: NS 1,000 ML IV 1,000 ML IV SCH (10:46)
[2024-05-11] MEDS ORDERED: OMNIPAQUE 350 mg/mL 100 mL BTL 100 ML ONE (10:55)
[2024-05-11 10:58] LABS: BASOPHILS # (AUTO) 0.1 X10^3/uL (0.0-0.1); BASOPHILS % (AUTO) 0.8 % (0.2-1.0); EOSINOPHILS # (AUTO) 0.3 x10^3/uL (0.0-0.2); EOSINOPHILS % (AUTO) 2.7 % (0.9-2.9); HEMATOCRIT 43.8 % (36.0-47.0); HEMOGLOBIN 14.8 g/dL (12.0-16.0); LYMPHOCYTES % (AUTO) 29.5 % (21.0-51.0); MEAN CORPUSCULAR HEMOGLOBIN 31.2 pg (27.0-34.0); MEAN CORPUSCULAR HGB CONC 33.7 g/dL (33.0-35.0); MEAN CORPUSCULAR VOLUME 92.6 fL (80.0-100.0); MEAN PLATELET VOLUME 8.4 fL (7.4-11.0); MONOCYTES # (AUTO) 0.8 x10^3/uL (0.3-0.8); PLATELET COUNT 340 X10^3/uL (150.0-450.0); RED BLOOD COUNT 4.73 X10^6/uL (3.5-5.4); RED CELL DISTRIBUTION WIDTH 13.3 % (11.6-16.5); WHITE BLOOD COUNT 10.1 X10^3/uL (3.6-10.0)
[2024-05-11] MEDS ORDERED: NS 1,000 ML IV 1,000 ML IV SCH (11:00)
[2024-05-11 11:12] LABS: ALANINE AMINOTRANSFERASE 21 Units/L (12-78); ALBUMIN 3.6 g/dL (3.4-5.0); ALKALINE PHOSPHATASE 88 Units/L (46-116); ASPARTATE AMINO TRANSFERASE 16 Units/L (15-37); BLOOD UREA NITROGEN 11 mg/dL (7-18); CALCIUM 8.6 mg/dL (8.5-10.1); CARBON DIOXIDE 28.2 mmol/L (21-32); CHLORIDE 106 mmol/L (98-107); CHOL/HDL RATIO 3.2 (0.0-5.0); CHOLESTEROL 183 mg/dL (0-200); CREATINE KINASE 26 Units/L (26-192); CREATININE 0.94 mg/dL (0.55-1.02); GLUCOSE 110 mg/dL (65-99); HDL CHOLESTEROL 57 mg/dL (40-60); POTASSIUM 3.5 mmol/L (3.5-5.1); SODIUM 141 mmol/L (136-145); TOTAL PROTEIN 7.3 g/dL (6.4-8.2); TRIGLYCERIDES 64 mg/dL (0-150); eGFR NON BLACK RACES > 60 (>60)
--- NOTE | 2024-05-11 11:18 | EKG ---
Test Reason : unresponsive Blood Pressure : */* mmHG Vent. Rate : 79 BPM Atrial Rate : 79 BPM P-R Int : 142 ms QRS Dur : 76 ms QT Int : 384 ms P-R-T Axes : 54 30 36 degrees QTc Int : 440 ms Normal sinus rhythm Low voltage QRS Cannot rule out Anterior infarct , age undetermined Abnormal ECG No previous ECGs available Confirmed by Young Meyers MD ([id number]) on 05/12/2024 9:30:33 AM Referred By: Confirmed By: Young Meyers MD
[2024-05-11 11:19] LABS: INR 1.01 (0.8-1.3)
--- NOTE | 2024-05-11 12:03 | CT ---
EXAMINATION: BRAIN W/O CON HISTORY: hx stroke, pt states headache to left side of head c/o weakness in right upper and lower extremity; COMPARISON: CT brain 06/08/2023 TECHNIQUE: Contiguous noncontrast axial CT images of the brain. Images are reviewed in the axial imaging plane with reformatted sagittal and coronal images.The above CT scan was done with automated exposure contr ol and the mA and kV was adjusted to obtain quality images according to patient size. FINDINGS: No evidence of acute intracranial hemorrhage, mass effect, or midline shift. Ventricles normal size and shape. Calvarium appears intact. IMPRESSION: No acute intracranial process seen. Recommend further evaluation with an MRI of the brain if this is of continued clinical concern. THIS IS AN ELECTRONICALLY VERIFIED FINAL REPORT 05/11/2024 11:59 AM - Electronically signed by Michelle Rowland MD
[2024-05-11] MEDS: ZOFRAN INJ 4 MG VIAL IVP ONE (12:42)
[2024-05-11] MEDS: MORPHINE SULFATE INJ 4 MG IVP ONE (12:42)
[2024-05-11 12:59] LABS: APPEARANCE,URINE CLEAR (CLEAR); BILIRUBIN,URINE NEGATIVE (NEGATIVE); BLOOD/HEMOGLOBIN,URINE NEGATIVE (NEGATIVE); COLOR,URINE YELLOW (YELLOW); GLUCOSE, URINE NEGATIVE (NEGATIVE); KETONES,URINE NEGATIVE (NEGATIVE); LEUKOCYTE ESTERASE ,URINE 1+ (NEGATIVE); NITRITES,URINE NEGATIVE (NEGATIVE); PROTEIN,URINE 1+ (NEGATIVE); UROBILINOGEN,URINE NORMAL (NORMAL)
[2024-05-11 13:03] LABS: BACTERIA,URINE 1+ /HPF (NEGATIVE); RBC,URINE NONE SEEN /HPF (0-3); SQUAMOUS EPITHELIAL CELL,UR FEW /HPF (NEGATIVE)
--- NOTE | 2024-05-11 13:22 | CT ---
EXAM: CAROTID CTA HISTORY: hx stroke, pt states headache to left side of head c/o weakness in right upper and lower extremity; COMPARISON: None TECHNIQUE: Multiple CT axial images of the neck and head were obtained after using IV contrast. 3D reconstructio ns utilizing axial MIPS imaging was performed and reviewed. Dose reduction techniques including Auto mated Exposure Control (AEC) and adjustment of mA and kV were utilized. Stenoses are measured using NASCET criteria. FINDINGS: Aorta has a normal caliber with no aneurysm, dissection, or stenosis. The usual three-vessel anatomy is present off the aortic arch. No stenosis at the origins of the great vessels. There is no subcl domenic or proximal axillary artery stenosis. Right common carotid artery widely patent. There is no carotid bulb plaque disease or stenosis. Cer vical segment right internal carotid artery is patent to the skull base. Left common carotid artery is widely patent. There is no carotid bulb plaque disease or stenosis. C ervical segment left internal carotid artery is patent to the skull base. The vertebral arteries are patent without significant occlusive disease. Upper lungs clear. The thyroid has a normal size and configuration. Left cervical lymphadenopathy i s present measuring up to 10 mm in short axis dimension. Smaller lymph nodes in the right neck. No fluid in the sinuses or mucosal thickening to suggest sinusitis. There is no mastoid effusion. Degenerative spondylitic changes are present in the spine. Fixation hardware is present at C5-6 IMPRESSION: 1. No carotid bulb plaque disease or stenosis 2. Left cervical lymphadenopathy THIS IS AN ELECTRONICALLY VERIFIED FINAL REPORT 05/11/2024 1:18 PM - Electronically signed by Lenard Rahman MD
--- NOTE | 2024-05-11 13:24 | CT ---
EXAM: BRAIN CTA HISTORY: hx stroke, pt states headache to left side of head c/o weakness in right upper and lower extremity; COMPARISON: Noncontrast head CT 05/11/2024 TECHNIQUE: Multiple CT axial images of the brain were obtained after using IV contrast. 3D reconstructions utili zing axial MIPS imaging was performed and reviewed. Dose reduction techniques including Automated Ex posure Control (AEC) and adjustment of mA and kV were utilized. Stenoses are measured using NASCET criteria. FINDINGS: Vertebral arteries are patent. Basilar artery widely patent and gives rise to large bilateral machine heddle cleaner ior cerebral arteries. Neither posterior communicating artery is identified. Probable normal anterior communicating artery. Distal cervical segment internal carotid arteries are patent. There is no significant carotid siphon stenosis. Anterior cerebral and middle cerebral arteries are widely patent. There is no large vessel occlusion. No aneurysms or arteriovenous malformation. IMPRESSION: 1. No significant occlusive disease THIS IS AN ELECTRONICALLY VERIFIED FINAL REPORT 05/11/2024 1:21 PM - Electronically signed by Lenard Rahman MD
--- NOTE | 2024-05-11 14:08 | DR.GENAD ---
HPI Time Seen Time Seen by Provider: 05/11/24 10:37 PCP Primary Care Physician: María Cook Complaint/Symptoms Chief Complaint Doctors Comments: 48-year-old female, history of CVA 2y ago, followed by the [facility], brought in by her son for acute onset of right- sided weakness in her right upper extremity and right lower extremity. Son was taking her to a doctor's appointment, patient began having severe weakness accompanied by headache. Upon arrival to the ER, complains of persistent 8 out of 10 headache, and persistent right-sided weakness. Denies other complaints at this time., Chief Complaint:: Patient arrived POV. Patient semi responsive stating she has a left sided headache that started this morning. Patient states the she feels weakness on her right side. Patient states she does have a history of strokes. Patient states she was taking plavix & her doctor stopped it a month ago. COVID-19 Coronavirus risk:travel/contact w/high risk person: No Has patient experienced Coronavirus symptoms: No Source History Provided: Patient Timing Onset of Chief Complaint: 05/11/24 PMH PMH Past Medical History: Yes Past Medical History: Arthritis, CVA and Hypertension Past Surgical History: Yes Surgical History: Ortho Surgery Family History History of Family Medical Conditions: Yes Family Medical History: Cancer and Hypertension Social History Alcohol Use: None Do you use any recreational Drugs:: No Lives With: Family Lives Where: Home Travel Risk Coronavirus risk:travel/contact w/high risk person: No Has patient experienced Coronavirus symptoms: No Infectious screening Have you traveled outside the country in the last 6 months?: No Isolation: Standard ROS Review of Systems Neurological: Headache and Weakness (RUE & RLE); negative Numbness, Paresthesia, Seizure, Tingling or Speech Problem PE Vital Signs Vitals: Vital Signs Temperature 98.1 F Pulse Rate 68 Pulse Rate 70 Pulse Rate 77 Pulse Rate 71 Pulse Rate 72 Pulse Rate 83 Pulse Rate 79 Pulse Rate 72 Pulse Rate 74 Pulse Rate 77 Pulse Rate 80 Pulse Rate 84 Pulse Rate 79 Pulse Rate 80 Pulse Rate 91 Pulse Rate 102 Respiratory Rate 16 Respiratory Rate 14 Respiratory Rate 18 Respiratory Rate 21 Respiratory Rate 17 Respiratory Rate 19 Respiratory Rate 21 Respiratory Rate 29 Respiratory Rate 16 Respiratory Rate 17 Respiratory Rate 20 Respiratory Rate 12 Respiratory Rate 15 Respiratory Rate 16 Respiratory Rate 17 Respiratory Rate 16 Blood Pressure 111/68 Blood Pressure 115/72 Blood Pressure 119/68 Blood Pressure 136/77 Blood Pressure 135/81 Blood Pressure 160/94 O2 Sat by Pulse Oximetry 96 O2 Sat by Pulse Oximetry 95 O2 Sat by Pulse Oximetry 96 O2 Sat by Pulse Oximetry 95 O2 Sat by Pulse Oximetry 97 O2 Sat by Pulse Oximetry 97 O2 Sat by Pulse Oximetry 97 O2 Sat by Pulse Oximetry 98 O2 Sat by Pulse Oximetry 97 O2 Sat by Pulse Oximetry 97 O2 Sat by Pulse Oximetry 97 O2 Sat by Pulse Oximetry 100 O2 Sat by Pulse Oximetry 99 O2 Sat by Pulse Oximetry 99 O2 Sat by Pulse Oximetry 100 General Limitations: No Limitations General Appearance: Alert and In No Apparent Distress Head Head Exam: Normal Inspection Eyes Eye exam: Normal Appearance ENT ENT Exam: Normal Exam External Ear Exam: Normal External Inspection TM/Canal Exam: Bilateral: Normal Nose Exam: Normal Nose Exam Mouth Exam: Normal Inspection Throat Exam: Normal Inspection Neck Neck Exam: Normal Inspection Chest Chest Inspection: Normal Inspection Respiratory Respiratory Exam: Normal Lung Sounds Bilat Respiratory Exam: Bilateral: Clear to Auscultation Cardiovascular Cardiovascular Exam: Regular Rate and Normal Rhythm Abdominal Exam Abdominal Exam: Normal Inspection, Normal Bowel Sounds and Soft Extremities Extremities Exam: Normal Inspection Back Back Exam: Normal Inspection Neurologic Neurological Exam: Alert, Oriented X3, CN II-XII Intact and Motor Sensory Deficit (3+/5 strength in RUE & RLE) Psychiatric Psychiatric Exam: Normal Affect and Normal Mood Skin Skin Exam: Warm, Dry, Intact and Normal Color MDM Additional Information Findings: evaluated by tele-neuro, does not meet criteria for thrombolytic. ROR Labs Reviewed Laboratory Results Reviewed?: Yes 05/11/24 10:38 05/11/24 10:38 Laboratory: WBC 10.1 X10^3/uL (3.6-10.0) H 05/11/24 10:38 RBC 4.73 X10^6/uL (3.5-5.4) 05/11/24 10:38 Hgb 14.8 g/dL (12.0-16.0) 05/11/24 10:38 Hct 43.8 % (36.0-47.0) 05/11/24 10:38 MCV 92.6 fL (80.0-100.0) 05/11/24 10:38 MCH 31.2 pg (27.0-34.0) 05/11/24 10:38 MCHC 33.7 g/dL (33.0-35.0) 05/11/24 10:38 RDW 13.3 % (11.6-16.5) 05/11/24 10:38 Plt Count 340 X10^3/uL (150.0-450.0) 05/11/24 10:38 MPV 8.4 fL (7.4-11.0) 05/11/24 10:38 Neut % (Auto) 59.0 % (42.0-75.0) 05/11/24 10:38 Lymph % (Auto) 29.5 % (21.0-51.0) 05/11/24 10:38 [place] % (Auto) 8.0 % (0.0-13.0) 05/11/24 10:38 Eos % (Auto) 2.7 % (0.9-2.9) 05/11/24 10:38 Baso % (Auto) 0.8 % (0.2-1.0) 05/11/24 10:38 Neut # (Auto) 6.0 x10^3/uL (2.2-4.8) H 05/11/24 10:38 Lymph # (Auto) 3.0 X10^3/uL (1.3-2.9) H 05/11/24 10:38 [place] # (Auto) 0.8 x10^3/uL (0.3-0.8) 05/11/24 10:38 Eos # (Auto) 0.3 x10^3/uL (0.0-0.2) H 05/11/24 10:38 Baso # (Auto) 0.1 X10^3/uL (0.0-0.1) 05/11/24 10:38 Absolute Nucleated RBC 0.2 /100WBC 05/11/24 10:38 PT 13.1 SECONDS (11.8-14.3) 05/11/24 10:38 INR Target Range - 05/11/24 10:38 INR 1.01 (0.8-1.3) 05/11/24 10:38 APTT 29.3 SECONDS (22.9-36.5) 05/11/24 10:38 PTT Comment - 05/11/24 10:38 Fibrinogen 298 mg/dL (239-489) 05/11/24 10:38 Sodium 141 mmol/L (136-145) 05/11/24 10:38 Corrected Sodium TNP 05/11/24 10:38 Potassium 3.5 mmol/L (3.5-5.1) 05/11/24 10:38 Chloride 106 mmol/L (98-107) 05/11/24 10:38 Carbon Dioxide 28.2 mmol/L (21-32) 05/11/24 10:38 BUN 11 mg/dL (7-18) 05/11/24 10:38 Creatinine 0.94 mg/dL (0.55-1.02) 05/11/24 10:38 Est GFR (MDRD) Af Amer > 60 (>60) 05/11/24 10:38 Est GFR (MDRD) Non-Af > 60 (>60) 05/11/24 10:38 Glucose 110 mg/dL (65-99) H 05/11/24 10:38 Calcium 8.6 mg/dL (8.5-10.1) 05/11/24 10:38 Corrected Calcium TNP 05/11/24 10:38 Total Bilirubin 0.40 mg/dL (0.2-1.0) 05/11/24 10:38 AST 16 Units/L (15-37) 05/11/24 10:38 ALT 21 Units/L (12-78) 05/11/24 10:38 Alkaline Phosphatase 88 Units/L (46-116) 05/11/24 10:38 Creatine Kinase 26 Units/L (26-192) 05/11/24 10:38 Troponin I High Sens < 4.0 ng/L (4.0-60.0) L 05/11/24 10:38 Total Protein 7.3 g/dL (6.4-8.2) 05/11/24 10:38 Albumin 3.6 g/dL (3.4-5.0) 05/11/24 10:38 Globulin 3.7 g/dL (2.5-4.5) 05/11/24 10:38 Albumin/Globulin Ratio 1.0 Ratio (1.1-2.1) L 05/11/24 10:38 Triglycerides 64 mg/dL (0-150) 05/11/24 10:38 Cholesterol 183 mg/dL (0-200) 05/11/24 10:38 LDL Cholesterol, Calc 113 mg/dL (0-100) H 05/11/24 10:38 HDL Cholesterol 57 mg/dL (40-60) 05/11/24 10:38 Cholesterol/HDL Ratio 3.2 (0.0-5.0) 05/11/24 10:38 Specimen Type Clean catch urine 05/11/24 12:39 Urine Color Yellow (YELLOW) 05/11/24 12:39 Urine Appearance Clear (CLEAR) 05/11/24 12:39 Urine pH 7.0 (5.0 - 8.0) 05/11/24 12:39 Ur Specific [place] 1.010 (1.000-1.030) 05/11/24 12:39 Urine Protein 1+ (NEGATIVE) 05/11/24 12:39 Urine Glucose (UA) Negative (NEGATIVE) 05/11/24 12:39 Urine Ketones Negative (NEGATIVE) 05/11/24 12:39 Urine Blood Negative (NEGATIVE) 05/11/24 12:39 Urine Nitrite Negative (NEGATIVE) 05/11/24 12:39 Urine Bilirubin Negative (NEGATIVE) 05/11/24 12:39 Urine Urobilinogen Normal (NORMAL) 05/11/24 12:39 Ur Leukocyte Esterase 1+ (NEGATIVE) 05/11/24 12:39 Urine RBC None seen /HPF (0-3) 05/11/24 12:39 Urine WBC 3-5 /HPF (0-5) 05/11/24 12:39 Ur Squamous Epith Cells Few /HPF (NEGATIVE) 05/11/24 12:39 Urine Bacteria 1+ /HPF (NEGATIVE) 05/11/24 12:39 Ur Culture Indicated? No/not indicated 05/11/24 12:39 Opioid Opioid Risk Tool Age ([place] if 16-45): No History of Preadolescent Sexual Abuse: No Total: 0 Total Score Risk Category: Low Risk Copyright: Terrance GARY predicting aberrant behaviors Discharge Plan Diagnosis Discharge Problem: Right-sided muscle weakness, Headache Discharge Plan Patient Disposition: 09 ADMITTED INPATIENT Condition: Stable Prescriptions: No Action atorvastatin 10 mg tablet 10 mg PO QDAY alprazolam 1 mg tablet 1 mg PO DAILY PRN clopidogrel 75 mg tablet 75 mg PO QDAY amlodipine 5 mg tablet 5 mg PO QDAY citalopram 20 mg tablet 20 mg PO QDAY amitriptyline 25 mg tablet 25 mg PO QPM pantoprazole 40 mg tablet,delayed release (DR/EC) 40 mg PO BID losartan 100 mg tablet 100 mg PO QDAY Mounjaro 12.5 mg/0.5 mL pen injector 12.5 mg SUBCUT QWEEK Patient Comments: [NO ORIGINAL SIG] aspirin 81 mg Tablet,Chewable 81 mg PO QDAY clonidine HCl 0.1 mg tablet 0.1 mg PO QDAY PRN (Reason: hypertensive emergency) Qty: 30 0RF potassium chloride 8 mEq Capsule, Extended Release 8 meq PO QDAY PRN hydrochlorothiazide 25 mg Tablet 25 mg PO QAM PRN (Reason: Edema) Health Concerns: Post Hospitalization: new medications and changes needed to prevent readmission or further decline. Pt educated and given instructions on all concerns. Plan of Treatment: Continue with present treatment and follow up plan. Pt is to keep follow up appointment as instructed and take medications as ordered. Orders to Discharge Patient Discharge Orders: Transfer (Routine); Ordered 05/11/24 Ordered By: Óscar Whitmore Follow ups/Referrals Follow ups/Referrals: MARÍA COOK [Primary Care Provider] - 3 days Instructions Stand Alone Forms: Find Help Web Site, Post Hospital Follow Up Care
--- NOTE | 2024-05-11 14:29 | RAD ---
EXAM: CHEST, 1 VIEW HISTORY: right sided weakness; COMPARISON: Prior study or studies were utilized for comparison during interpretation with the most relevant linda ed 01/13/2020 TECHNIQUE: CHEST, 1 VIEW FINDINGS: Chest: Lines and tubes: Cardiac leads overlie the chest. Mediastinum: Cardiac and mediastinal shadow is within normal limits for size and contour. Pulmonary vessels: No pulmonary vascular congestion. Lung rodriguez: No suspicious airspace opacity. Pleura: No effusion. No pneumothorax. Bones and soft tissues: No acute osseous or soft tissue abnormality. IMPRESSION: 1. No acute cardiopulmonary abnormality THIS IS AN ELECTRONICALLY VERIFIED FINAL REPORT 05/11/2024 2:26 PM - Electronically signed by Willem Vaughn MD
[2024-05-11 15:46] VITALS: BMI 30.9
[2024-05-11] MEDS ORDERED: MULTIHANCE INJ VIAL ONE (15:51)
--- NOTE | 2024-05-11 16:18 | MRI ---
EXAM: BRAIN W&W/O CON HISTORY: RIGHT SIDED WEAKNESS ; COMPARISON: CT head without contrast from May 11, 2024 TECHNIQUE: MRI images of the brain prior to and after the administration intravenous contrast (15 mL MultiHance) utilizing a routine protocol. FINDINGS: Tiny T2 bright foci scattered throughout the white matter of the frontal and parietal lobes. No abnormal signal in the dural sinuses on the sagittal T1 sequence. Pituitary gland and stalk appear normal. No mass effect on the optic chiasm. No Chiari 1 malformation. Imaged portion of the spine and spinal cord appear grossly normal. No restricted diffusion. Flow voids appear normal on the T2 sequence. No intracranial, extra-axial, fluid collection. No mass, mass effect or midline shift. No abnormal areas of acute T2 signal in the brain parenchyma. No blooming artifact in the brain parenchyma. Sinuses are well aerated Mastoid air cells are well aerated. Globes and intra-orbital contents appear normal. No ventriculomegaly. IMPRESSION: Tiny T2 bright foci scattered throughout the white matter of the frontal and parietal lobes. Differe ntial diagnosis includes a normal variant appearance, sequela of chronic migraine headaches and early microvascular disease. Differential diagnosis less likely includes a demyelinating process and sequ neil of Lyme disease. THIS IS AN ELECTRONICALLY VERIFIED FINAL REPORT 05/11/2024 4:14 PM - Electronically signed by Christopher Maldonado MD
--- NOTE | 2024-05-11 17:12 | DR.CONSULT ---
CONSULT Consultation for Day of: Date: 05/11/24 Allergies Allergies Allergy/AdvReac Type Severity Reaction Status Date / Time hydrocodone [From [place]] AdvReac Verified 06/09/23 07:58 meperidine [From Demerol] AdvReac Verified 06/09/23 07:58 History of Present Illness History of Present Illness: [facility] Patient Name: Tracy Arriola Date of : 1975 Identification Number: Date of Service: 05/11/2024 10:38:53 Diagnosis: I63.89 - Cerebrovascular accident (CVA) due to other mechanism ([facility]) Impression: TIA versus stroke versus complex migraine The patient is not within the window for treatment with IV thrombolytic therapy She has been having symptoms since yesterday In addition she awoke today with the right-sided weakness CTA head and neck is unremarkable for large vessel occlusion Would recommend a migraine cocktail MRI of the brain without contrast Patient is already on aspirin may want to consider Plavix loading 300 mg now and begin at least a 21-day course of aspirin 81 mg and Plavix 75 mg daily Statin Following a 21-day course of dual antiplatelet therapy she can be transitioned back to monotherapy with aspirin Our recommendations are outlined below. Recommendations: Stroke/Telemetry Floor Neuro Checks Bedside Swallow Eval DVT Prophylaxis IV Fluids, Normal Saline Head of Bed 30 Degrees Euglycemia and Avoid Hyperthermia (PRN Acetaminophen) Bolus with Clopidogrel 300 mg bolus x1 and initiate dual antiplatelet therapy with Aspirin 81 mg daily and Clopidogrel 75 mg daily Antihypertensives PRN if Blood pressure is greater than 220/120 or there is a concern for End organ damage/contraindications for permissive HTN. If blood pressure is greater than 220/120 give labetalol PO or IV or Vasotec IV with a goal of 15% reduction in BP during the first 24 hours. Sign Out: Discussed with Emergency Department Provider Advanced Imaging: CTA Head and Neck Completed. LVO:No Patient in not a candidate for DAMEON Metrics: Last Known Well: Unknown Dispatch Time: 05/11/2024 10:38:53 Arrival Time: 05/11/2024 10:34:00 Initial Response Time: 05/11/2024 10:43:15 Symptoms: right sided weakness . Initial patient interaction: 05/11/2024 10:51:04 NIHSS Assessment Completed: 05/11/2024 10:54:02 Patient is not a candidate for Thrombolytic. Thrombolytic Medical Decision: 05/11/2024 10:54:05 Patient was not deemed candidate for Thrombolytic because of following reasons: LKW outside 4.[address] head showed no acute hemorrhage or acute core infarct. Primary Provider Notified of Diagnostic Impression and Management Plan on: 05/11/2024 13:00:00 History of Present Illness: Patient is a 48 year old Female. Patient was brought by private transportation with symptoms of right sided weakness . 48-year-old female with a past medical history significant for stroke 2 years ago she states without any residual deficits she actually normally follows with the [facility] for her stroke follow-up She comes into the emergency department today she has been experiencing symptoms since yesterday of intermittent slurred speech headache When she woke up today she noted that she had weakness in her right arm and right leg Her headache currently is an 8 out of 10 on a scale of 1-10 It is a right-sided headache throbbing pressure pain with photophobia phonophobia she denies any nausea and vomiting now Past Medical History: Hypertension There is no history of Hyperlipidemia Medications: No Anticoagulant use Antiplatelet use: Yes ASA Reviewed EMR for current medications Allergies: Reviewed Social History: Drug Use: No Family History: There is no family history of premature cerebrovascular disease pertinent to this consultation ROS : 14 Points Review of Systems was performed and was negative except mentioned in HPI. Past Surgical History: There Is No Surgical History Contributory To Todays Visit Examination: BP(112/70), Pulse(65), Blood Glucose(110) 1A: Level of Consciousness - Alert; keenly responsive + 0 1B: Ask Month and Age - Both Questions Right + 0 1C: Blink Eyes & Squeeze Hands - Performs Both Tasks + 0 2: Test Horizontal Extraocular Movements - Normal + 0 3: Test Visual [place] - No Visual Loss + 0 4: Test Facial Palsy (Use Grimace if Obtunded) - Normal symmetry + 0 5A: Test Left Arm Motor Drift - No Drift for 10 Seconds + 0 5B: Test Right Arm Motor Drift - Some Effort Against [place] + 2 6A: Test Left Leg Motor Drift - No Drift for 5 Seconds + 0 6B: Test Right Leg Motor Drift - Some Effort Against [place] + 2 7: Test Limb Ataxia (FNF/Heel-Romo) - No Ataxia + 0 8: Test Sensation - Mild-Moderate Loss: Less Sharp/More Dull + 1 9: Test Language/Aphasia - Normal; No aphasia + 0 10: Test Dysarthria - Normal + 0 11: Test Extinction/Inattention - No abnormality + 0 NIHSS Score: 5 Pre-Morbid Modified Tone Scale: 0 Points = No symptoms at all Spoke with : MONIQUE ORTEGA This consult was conducted in real time using interactive audio and video technology. Patient was informed of the technology being used for this visit and agreed to proceed. Patient located in hospital and provider located at home/office setting. Patient is being evaluated for possible acute neurologic impairment and high probability of imminent or life-threatening deterioration. I spent total of 35 minutes providing care to this patient, including time for face to face visit via telemedicine, review of medical records, imaging studies and discussion of findings with providers, the patient and/or family. Dr Christopher Espinosa [facility] For Inpatient follow-up with [facility] physician please call [facility] at . As we are not an outpatient service for any post hospital discharge needs please contact the hospital for assistance. If you have any questions for the [facility] physicians or need to reconsult for clinical or diagnostic changes please contact us via [facility] at . Past Medical History Past Medical History: Arthritis, CVA and Hypertension Past Surgical History Surgical History: Ortho Surgery Additional Surgical History: cervical spine surgery Family History Family Medical History: Cancer and Hypertension Social History Does patient currently use any type of tobacco product: No Alcohol Use: None Drug Use: None Medications Home Medications: hydrocodone [From [place]] Adverse Reaction (Verified 06/09/23 07:58) meperidine [From Demerol] Adverse Reaction (Verified 06/09/23 07:58) CONTINUE taking the following medications hydroxyzine HCl 10 mg tablet 10 mg PO TID PRN 05/11/24 [History] topiramate 50 mg tablet 50 mg PO BID 05/11/24 [History] Physical Exam Vital Signs: Vital Signs Temperature 98.7 F Temperature 98.1 F Pulse Rate [Brachial] 65 Pulse Rate 73 Pulse Rate 67 Pulse Rate 68 Pulse Rate 70 Pulse Rate 71 Pulse Rate 68 Pulse Rate 70 Pulse Rate 77 Pulse Rate 71 Pulse Rate 72 Pulse Rate 83 Pulse Rate 79 Pulse Rate 72 Pulse Rate 74 Pulse Rate 77 Pulse Rate 80 Pulse Rate 84 Pulse Rate 79 Pulse Rate 80 Pulse Rate 91 Pulse Rate 102 Respiratory Rate 18 Respiratory Rate 14 Respiratory Rate 13 Respiratory Rate 18 Respiratory Rate 18 Respiratory Rate 16 Respiratory Rate 16 Respiratory Rate 14 Respiratory Rate 18 Respiratory Rate 21 Respiratory Rate 17 Respiratory Rate 19 Respiratory Rate 21 Respiratory Rate 29 Respiratory Rate 16 Respiratory Rate 17 Respiratory Rate 20 Respiratory Rate 12 Respiratory Rate 15 Respiratory Rate 16 Respiratory Rate 17 Respiratory Rate 16 Blood Pressure [Left Arm] 112/70 Blood Pressure 110/67 Blood Pressure 110/67 Blood Pressure 115/68 Blood Pressure 111/68 Blood Pressure 115/72 Blood Pressure 119/68 Blood Pressure 136/77 Blood Pressure 135/81 Blood Pressure 160/94 O2 Sat by Pulse Oximetry 97 O2 Sat by Pulse Oximetry 96 O2 Sat by Pulse Oximetry 95 O2 Sat by Pulse Oximetry 97 O2 Sat by Pulse Oximetry 97 O2 Sat by Pulse Oximetry 96 O2 Sat by Pulse Oximetry 96 O2 Sat by Pulse Oximetry 95 O2 Sat by Pulse Oximetry 96 O2 Sat by Pulse Oximetry 95 O2 Sat by Pulse Oximetry 97 O2 Sat by Pulse Oximetry 97 O2 Sat by Pulse Oximetry 97 O2 Sat by Pulse Oximetry 98 O2 Sat by Pulse Oximetry 97 O2 Sat by Pulse Oximetry 97 O2 Sat by Pulse Oximetry 97 O2 Sat by Pulse Oximetry 100 O2 Sat by Pulse Oximetry 99 O2 Sat by Pulse Oximetry 99 O2 Sat by Pulse Oximetry 100
[2024-05-11] MEDS: TYLENOL 325 MG TAB PO PRN (17:29)
[2024-05-11] MEDS: TYLENOL 325 MG TAB PO ONE (18:02)
[2024-05-12 05:33] LABS: BASOPHILS # (AUTO) 0.1 X10^3/uL (0.0-0.1); BASOPHILS % (AUTO) 0.7 % (0.2-1.0); EOSINOPHILS # (AUTO) 0.3 x10^3/uL (0.0-0.2); EOSINOPHILS % (AUTO) 3.1 % (0.9-2.9); LYMPHOCYTES # (AUTO) 2.9 X10^3/uL (1.3-2.9); MEAN CORPUSCULAR HEMOGLOBIN 31.3 pg (27.0-34.0); MEAN CORPUSCULAR HGB CONC 33.6 g/dL (33.0-35.0); MEAN CORPUSCULAR VOLUME 93.3 fL (80.0-100.0); MONOCYTES # (AUTO) 0.6 x10^3/uL (0.3-0.8); MONOCYTES % (AUTO) 7.1 % (0.0-13.0); NEUTROPHILS # (AUTO) 5.1 x10^3/uL (2.2-4.8); NEUTROPHILS % (AUTO) 57.1 % (42.0-75.0); PLATELET COUNT 298 X10^3/uL (150.0-450.0); RED BLOOD COUNT 3.97 X10^6/uL (3.5-5.4); WHITE BLOOD COUNT 8.9 X10^3/uL (3.6-10.0)
[2024-05-12 05:43] LABS: ALANINE AMINOTRANSFERASE 24 Units/L (12-78); ALBUMIN 2.8 g/dL (3.4-5.0); ALKALINE PHOSPHATASE 70 Units/L (46-116); ASPARTATE AMINO TRANSFERASE 16 Units/L (15-37); BLOOD UREA NITROGEN 9 mg/dL (7-18); CALCIUM 8.2 mg/dL (8.5-10.1); CARBON DIOXIDE 32.1 mmol/L (21-32); CHLORIDE 109 mmol/L (98-107); COR CA(FOR HYPOALB) 9.2 mg/dL (8.5-10.1); CREATININE 0.86 mg/dL (0.55-1.02); GLUCOSE 106 mg/dL (65-99); POTASSIUM 4.2 mmol/L (3.5-5.1); SODIUM 146 mmol/L (136-145); TOTAL PROTEIN 5.9 g/dL (6.4-8.2); eGFR NON BLACK RACES > 60 (>60)
[2024-05-12 05:54] LABS: HEMOGLOBIN 12.4 g/dL (12.0-16.0)
[2024-05-12] MEDS: TORADOL 30 MG VIAL IVP ONE (11:32)
[2024-05-12] MEDS: TORADOL 30 MG VIAL ONE (11:52)
--- NOTE | 2024-05-12 12:40 | DR.H&P ---
H&P History & Physical for Day of: H&P Date: 05/11/24 Chief Complaint Chief Complaint: WILL, "PASSED OUT" History of Present Illness History of Present Illness: 48-year-old female, history of CVA 2y ago, followed by the [facility], brought in by her son for acute onset of right-sided weakness in her right upper extremity and right lower extremity. Son was taking her to a doctor's appointment, patient began having severe weakness accompanied by headache. Upon arrival to the ER, complains of persistent 8 out of 10 headache, and persistent right-sided weakness. Denies other complaints at this time. Pt has had similar episodes in the past with cardiac and neurological work up. Pt is currently under the care of [place] [facility]. Past Medical History Past Medical History: Arthritis, CVA and Hypertension Past Surgical History Surgical History: Ortho Surgery Additional Surgical History: cervical spine surgery Family History Family Medical History: Cancer and Hypertension Social History Does patient currently use any type of tobacco product: No Alcohol Use: None Drug Use: None Medications Home Medications: Home Medications Medication Instructions Recorded Confirmed Type alprazolam 1 mg tablet 1 mg PO BID 06/08/23 05/11/24 History amitriptyline 25 mg tablet 37.5 mg PO QPM 06/08/23 05/11/24 History amlodipine 5 mg tablet 5 mg PO QDAY 06/08/23 05/11/24 History aspirin 81 mg chewable tablet 81 mg PO QDAY 06/08/23 05/11/24 History citalopram 20 mg tablet 20 mg PO QDAY 06/08/23 05/11/24 History pantoprazole 40 mg tablet,delayed 40 mg PO BID 06/08/23 05/11/24 History release tirzepatide 12.5 mg/0.5 mL 10 mg subcut QWEEK 06/08/23 05/11/24 History subcutaneous pen injector (Mounjaro) hydroxyzine HCl 10 mg tablet 10 mg PO TID PRN 05/11/24 05/11/24 History topiramate 50 mg tablet 50 mg PO BID 05/11/24 05/11/24 History Allergies Allergies Allergy/AdvReac Type Severity Reaction Status Date / Time hydrocodone [From [place]] AdvReac Verified 06/09/23 07:58 meperidine [From Demerol] AdvReac Verified 06/09/23 07:58 Labs 05/12/24 05:10 05/12/24 05:10 Labs: Laboratory WBC 8.9 X10^3/uL (3.6-10.0) 05/12/24 05:10 RBC 3.97 X10^6/uL (3.5-5.4) 05/12/24 05:10 Hgb 12.4 g/dL (12.0-16.0) D 05/12/24 05:10 Hct 37.0 % (36.0-47.0) 05/12/24 05:10 MCV 93.3 fL (80.0-100.0) 05/12/24 05:10 MCH 31.3 pg (27.0-34.0) 05/12/24 05:10 MCHC 33.6 g/dL (33.0-35.0) 05/12/24 05:10 RDW 14.0 % (11.6-16.5) 05/12/24 05:10 Plt Count 298 X10^3/uL (150.0-450.0) 05/12/24 05:10 MPV 8.0 fL (7.4-11.0) 05/12/24 05:10 Neut % (Auto) 57.1 % (42.0-75.0) 05/12/24 05:10 Lymph % (Auto) 32.0 % (21.0-51.0) 05/12/24 05:10 Rains % (Auto) 7.1 % (0.0-13.0) 05/12/24 05:10 Eos % (Auto) 3.1 % (0.9-2.9) H 05/12/24 05:10 Baso % (Auto) 0.7 % (0.2-1.0) 05/12/24 05:10 Neut # (Auto) 5.1 x10^3/uL (2.2-4.8) H 05/12/24 05:10 Lymph # (Auto) 2.9 X10^3/uL (1.3-2.9) 05/12/24 05:10 Rains # (Auto) 0.6 x10^3/uL (0.3-0.8) 05/12/24 05:10 Eos # (Auto) 0.3 x10^3/uL (0.0-0.2) H 05/12/24 05:10 Baso # (Auto) 0.1 X10^3/uL (0.0-0.1) 05/12/24 05:10 Absolute Nucleated RBC 0.0 /100WBC 05/12/24 05:10 PT 13.1 SECONDS (11.8-14.3) 05/11/24 10:38 INR Target Range - 05/11/24 10:38 INR 1.01 (0.8-1.3) 05/11/24 10:38 APTT 29.3 SECONDS (22.9-36.5) 05/11/24 10:38 PTT Comment - 05/11/24 10:38 Fibrinogen 298 mg/dL (239-489) 05/11/24 10:38 Sodium 146 mmol/L (136-145) H 05/12/24 05:10 Corrected Sodium TNP 05/12/24 05:10 Potassium 4.2 mmol/L (3.5-5.1) 05/12/24 05:10 Chloride 109 mmol/L (98-107) H 05/12/24 05:10 Carbon Dioxide 32.1 mmol/L (21-32) H 05/12/24 05:10 BUN 9 mg/dL (7-18) 05/12/24 05:10 Creatinine 0.86 mg/dL (0.55-1.02) 05/12/24 05:10 Est GFR (MDRD) Af Amer > 60 (>60) 05/12/24 05:10 Est GFR (MDRD) Non-Af > 60 (>60) 05/12/24 05:10 Glucose 106 mg/dL (65-99) H 05/12/24 05:10 Calcium 8.2 mg/dL (8.5-10.1) L 05/12/24 05:10 Corrected Calcium 9.2 mg/dL (8.5-10.1) 05/12/24 05:10 Magnesium 2.0 mg/dL (2.0-2.9) 05/12/24 05:10 Total Bilirubin 0.30 mg/dL (0.2-1.0) 05/12/24 05:10 AST 16 Units/L (15-37) 05/12/24 05:10 ALT 24 Units/L (12-78) 05/12/24 05:10 Alkaline Phosphatase 70 Units/L (46-116) 05/12/24 05:10 Creatine Kinase 26 Units/L (26-192) 05/11/24 10:38 Troponin I High Sens < 4.0 ng/L (4.0-60.0) L 05/11/24 10:38 Total Protein 5.9 g/dL (6.4-8.2) L 05/12/24 05:10 Albumin 2.8 g/dL (3.4-5.0) L 05/12/24 05:10 Globulin 3.1 g/dL (2.5-4.5) 05/12/24 05:10 Albumin/Globulin Ratio 0.9 Ratio (1.1-2.1) L 05/12/24 05:10 Triglycerides 64 mg/dL (0-150) 05/11/24 10:38 Cholesterol 183 mg/dL (0-200) 05/11/24 10:38 LDL Cholesterol, Calc 113 mg/dL (0-100) H 05/11/24 10:38 HDL Cholesterol 57 mg/dL (40-60) 05/11/24 10:38 Cholesterol/HDL Ratio 3.2 (0.0-5.0) 05/11/24 10:38 Specimen Type Clean catch urine 05/11/24 12:39 Urine Color Yellow (YELLOW) 05/11/24 12:39 Urine Appearance Clear (CLEAR) 05/11/24 12:39 Urine pH 7.0 (5.0 - 8.0) 05/11/24 12:39 Ur Specific [place] 1.010 (1.000-1.030) 05/11/24 12:39 Urine Protein 1+ (NEGATIVE) 05/11/24 12:39 Urine Glucose (UA) Negative (NEGATIVE) 05/11/24 12:39 Urine Ketones Negative (NEGATIVE) 05/11/24 12:39 Urine Blood Negative (NEGATIVE) 05/11/24 12:39 Urine Nitrite Negative (NEGATIVE) 05/11/24 12:39 Urine Bilirubin Negative (NEGATIVE) 05/11/24 12:39 Urine Urobilinogen Normal (NORMAL) 05/11/24 12:39 Ur Leukocyte Esterase 1+ (NEGATIVE) 05/11/24 12:39 Urine RBC None seen /HPF (0-3) 05/11/24 12:39 Urine WBC 3-5 /HPF (0-5) 05/11/24 12:39 Ur Squamous Epith Cells Few /HPF (NEGATIVE) 05/11/24 12:39 Urine Bacteria 1+ /HPF (NEGATIVE) 05/11/24 12:39 Ur Culture Indicated? No/not indicated 05/11/24 12:39 Review of Systems Constitutional: No Symptoms Reported Eyes: Vision Change ENT: No Symptoms Reported Respiratory: No Symptoms Reported Cardiovascular: No Symptoms Reported Gastrointestinal: No Symptoms Reported Genitourinary: No Symptoms Reported Musculoskeletal: No Symptoms Reported Skin: No Symptoms Reported Neurological: Weakness and Other (PASSED OUT) Physical Exam Vital Signs: Vital Signs Temperature 97.9 F Pulse Rate [Brachial] 68 Respiratory Rate 18 Respiratory Rate 17 Blood Pressure [Left Arm] 108/61 O2 Sat by Pulse Oximetry 96 Oriented: Person Eyes: Normal Nose: Normal Throat: Normal Respiratory: Clear Throughout Cardiovascular: Normal Auscultation: Bowel Sounds: Normal Tenderness: Normal Skin: Normal Musculoskeletal: Normal and Motor Deficit Mood Description: Calm Speech Pattern: Clear, Appropriate and Delayed Assessment/Plan (1) Right-sided muscle weakness: Status: Acute Plan: ADMIT, NEURO EVALUATION VIA TELEMED WHILE IN ER CT HEAD AND CAROTID OBTAINED ON ADMISSION BP MONITORING, IV HYDRATION, BS CONTROL VERIFY HOME MEDICATIONS NPO UNTIL MRI (2) Headache: Status: Acute (3) Syncope: Status: Acute (4) Diabetes mellitus, new onset: Status: Acute (5) Hypertension: Qualifiers: Hypertension type: essential hypertension Qualified Code(s): I10 - Essential (primary) hypertension Status: Acute (6) History of CVA (cerebrovascular accident): Status: Acute (7) AIVLA (generalized anxiety disorder): Status: Acute
[2024-05-12] MEDS: TOPAMAX PO SCH (21:01)
[2024-05-12] MEDS: ALPRAZOLAM ODT PO PRN (21:01)
[2024-05-13 05:25] LABS: BASOPHILS # (AUTO) 0.1 X10^3/uL (0.0-0.1); BASOPHILS % (AUTO) 0.6 % (0.2-1.0); EOSINOPHILS # (AUTO) 0.3 x10^3/uL (0.0-0.2); EOSINOPHILS % (AUTO) 3.2 % (0.9-2.9); HEMATOCRIT 35.8 % (36.0-47.0); HEMOGLOBIN 12.2 g/dL (12.0-16.0); LYMPHOCYTES # (AUTO) 3.5 X10^3/uL (1.3-2.9); LYMPHOCYTES % (AUTO) 34.5 % (21.0-51.0); MEAN CORPUSCULAR HEMOGLOBIN 31.7 pg (27.0-34.0); MEAN CORPUSCULAR HGB CONC 34.2 g/dL (33.0-35.0); MEAN CORPUSCULAR VOLUME 92.9 fL (80.0-100.0); MEAN PLATELET VOLUME 8.7 fL (7.4-11.0); MONOCYTES # (AUTO) 0.8 x10^3/uL (0.3-0.8); MONOCYTES % (AUTO) 7.8 % (0.0-13.0); NEUTROPHILS # (AUTO) 5.4 x10^3/uL (2.2-4.8); NEUTROPHILS % (AUTO) 53.9 % (42.0-75.0); PLATELET COUNT 274 X10^3/uL (150.0-450.0); RED BLOOD COUNT 3.85 X10^6/uL (3.5-5.4); RED CELL DISTRIBUTION WIDTH 13.6 % (11.6-16.5); WHITE BLOOD COUNT 10.1 X10^3/uL (3.6-10.0)
[2024-05-13 05:39] LABS: ALANINE AMINOTRANSFERASE 27 Units/L (12-78); ALBUMIN 2.5 g/dL (3.4-5.0); ALKALINE PHOSPHATASE 75 Units/L (46-116); ASPARTATE AMINO TRANSFERASE 20 Units/L (15-37); BLOOD UREA NITROGEN 9 mg/dL (7-18); CALCIUM 7.7 mg/dL (8.5-10.1); CHLORIDE 109 mmol/L (98-107); COR CA(FOR HYPOALB) 8.9 mg/dL (8.5-10.1); CREATININE 0.71 mg/dL (0.55-1.02); GLUCOSE 101 mg/dL (65-99); MAGNESIUM 1.8 mg/dL (2.0-2.9); POTASSIUM 3.6 mmol/L (3.5-5.1); SODIUM 144 mmol/L (136-145); TOTAL PROTEIN 5.4 g/dL (6.4-8.2); eGFR NON BLACK RACES > 60 (>60)
[2024-05-13] MEDS ORDERED: CONSULT PHARMACY - POTASSIUM & MAGNESIUM XX SCH (06:00)
[2024-05-13] MEDS: ASPIRIN EC 81 MG PO SCH (09:33)
[2024-05-13] MEDS: CELEXA PO SCH (09:33)
[2024-05-13] MEDS: MAG-OX TAB PO SCH (09:33)
[2024-05-13] MEDS: NORVASC TAB 5 MG PO SCH (09:33)
[2024-05-13] MEDS: K-DUR TAB 20 MEQ PO SCH (09:33)
[2024-05-13 10:45] VITALS: O2SAT 98
[2024-05-13 12:36] VITALS: BP 111/65; PULSE 70; RESP 18; TEMP 97.5
--- NOTE | 2024-05-13 14:57 | PCM.DCPLAN ---
DISCHARGE SUMMARY Admission Date Date of Admission: 05/11/24 Discharge Date Discharge Date: 05/13/24 Admission Diagnoses (1) Right-sided muscle weakness: Status: Acute (2) Headache: Status: Acute (3) Syncope: Status: Acute (4) Diabetes mellitus, new onset: Status: Acute (5) Hypertension: Status: Acute (6) History of CVA (cerebrovascular accident): Status: Acute (7) AVILA (generalized anxiety disorder): Status: Acute Discharge Medications Discharge Medications: Home Medication List hydroxyzine HCl 10 mg tablet 10 mg PO TID PRN 05/11/24 [History] topiramate 50 mg tablet 50 mg PO BID 05/11/24 [History] Prescriptions: Hospital Course Vital Signs: Vital Signs Temperature 97.6 F Temperature 97.9 F Pulse Rate [Brachial] 67 Pulse Rate [Brachial] 76 Respiratory Rate 17 Respiratory Rate 18 Blood Pressure [Left Arm] 116/70 Blood Pressure [Left Arm] 111/65 O2 Sat by Pulse Oximetry 98 O2 Sat by Pulse Oximetry 95 Latest Lab Results: Laboratory Last Values WBC 10.1 X10^3/uL (3.6-10.0) H 05/13/24 04:20 RBC 3.85 X10^6/uL (3.5-5.4) 05/13/24 04:20 Hgb 12.2 g/dL (12.0-16.0) 05/13/24 04:20 Hct 35.8 % (36.0-47.0) L 05/13/24 04:20 MCV 92.9 fL (80.0-100.0) 05/13/24 04:20 MCH 31.7 pg (27.0-34.0) 05/13/24 04:20 MCHC 34.2 g/dL (33.0-35.0) 05/13/24 04:20 RDW 13.6 % (11.6-16.5) 05/13/24 04:20 Plt Count 274 X10^3/uL (150.0-450.0) 05/13/24 04:20 MPV 8.7 fL (7.4-11.0) 05/13/24 04:20 Neut % (Auto) 53.9 % (42.0-75.0) 05/13/24 04:20 Lymph % (Auto) 34.5 % (21.0-51.0) 05/13/24 04:20 [place] % (Auto) 7.8 % (0.0-13.0) 05/13/24 04:20 Eos % (Auto) 3.2 % (0.9-2.9) H 05/13/24 04:20 Baso % (Auto) 0.6 % (0.2-1.0) 05/13/24 04:20 Neut # (Auto) 5.4 x10^3/uL (2.2-4.8) H 05/13/24 04:20 Lymph # (Auto) 3.5 X10^3/uL (1.3-2.9) H 05/13/24 04:20 [place] # (Auto) 0.8 x10^3/uL (0.3-0.8) 05/13/24 04:20 Eos # (Auto) 0.3 x10^3/uL (0.0-0.2) H 05/13/24 04:20 Baso # (Auto) 0.1 X10^3/uL (0.0-0.1) 05/13/24 04:20 Absolute Nucleated RBC 0.0 /100WBC 05/13/24 04:20 PT 13.1 SECONDS (11.8-14.3) 05/11/24 10:38 INR Target Range - 05/11/24 10:38 INR 1.01 (0.8-1.3) 05/11/24 10:38 APTT 29.3 SECONDS (22.9-36.5) 05/11/24 10:38 PTT Comment - 05/11/24 10:38 Fibrinogen 298 mg/dL (239-489) 05/11/24 10:38 Sodium 144 mmol/L (136-145) 05/13/24 04:20 Corrected Sodium TNP 05/13/24 04:20 Potassium 3.6 mmol/L (3.5-5.1) 05/13/24 04:20 Chloride 109 mmol/L (98-107) H 05/13/24 04:20 Carbon Dioxide 28.0 mmol/L (21-32) 05/13/24 04:20 BUN 9 mg/dL (7-18) 05/13/24 04:20 Creatinine 0.71 mg/dL (0.55-1.02) 05/13/24 04:20 Est GFR (MDRD) Af Amer > 60 (>60) 05/13/24 04:20 Est GFR (MDRD) Non-Af > 60 (>60) 05/13/24 04:20 Glucose 101 mg/dL (65-99) H 05/13/24 04:20 Calcium 7.7 mg/dL (8.5-10.1) L 05/13/24 04:20 Corrected Calcium 8.9 mg/dL (8.5-10.1) 05/13/24 04:20 Magnesium 1.8 mg/dL (2.0-2.9) L 05/13/24 04:20 Total Bilirubin 0.30 mg/dL (0.2-1.0) 05/13/24 04:20 AST 20 Units/L (15-37) 05/13/24 04:20 ALT 27 Units/L (12-78) 05/13/24 04:20 Alkaline Phosphatase 75 Units/L (46-116) 05/13/24 04:20 Creatine Kinase 26 Units/L (26-192) 05/11/24 10:38 Troponin I High Sens < 4.0 ng/L (4.0-60.0) L 05/11/24 10:38 Total Protein 5.4 g/dL (6.4-8.2) L 05/13/24 04:20 Albumin 2.5 g/dL (3.4-5.0) L 05/13/24 04:20 Globulin 2.9 g/dL (2.5-4.5) 05/13/24 04:20 Albumin/Globulin Ratio 0.9 Ratio (1.1-2.1) L 05/13/24 04:20 Triglycerides 64 mg/dL (0-150) 05/11/24 10:38 Cholesterol 183 mg/dL (0-200) 05/11/24 10:38 LDL Cholesterol, Calc 113 mg/dL (0-100) H 05/11/24 10:38 HDL Cholesterol 57 mg/dL (40-60) 05/11/24 10:38 Cholesterol/HDL Ratio 3.2 (0.0-5.0) 05/11/24 10:38 Specimen Type Clean catch urine 05/11/24 12:39 Urine Color Yellow (YELLOW) 05/11/24 12:39 Urine Appearance Clear (CLEAR) 05/11/24 12:39 Urine pH 7.0 (5.0 - 8.0) 05/11/24 12:39 Ur Specific [place] 1.010 (1.000-1.030) 05/11/24 12:39 Urine Protein 1+ (NEGATIVE) 05/11/24 12:39 Urine Glucose (UA) Negative (NEGATIVE) 05/11/24 12:39 Urine Ketones Negative (NEGATIVE) 05/11/24 12:39 Urine Blood Negative (NEGATIVE) 05/11/24 12:39 Urine Nitrite Negative (NEGATIVE) 05/11/24 12:39 Urine Bilirubin Negative (NEGATIVE) 05/11/24 12:39 Urine Urobilinogen Normal (NORMAL) 05/11/24 12:39 Ur Leukocyte Esterase 1+ (NEGATIVE) 05/11/24 12:39 Urine RBC None seen /HPF (0-3) 05/11/24 12:39 Urine WBC 3-5 /HPF (0-5) 05/11/24 12:39 Ur Squamous Epith Cells Few /HPF (NEGATIVE) 05/11/24 12:39 Urine Bacteria 1+ /HPF (NEGATIVE) 05/11/24 12:39 Ur Culture Indicated? No/not indicated 05/11/24 12:39 Hospital Course: Patient with a history of CVA 2 years ago and followed by [place] [facility] due to continued sequela I and recurrent headaches. Was headed to her PCPs office for a Toradol injection due to a severe headache when she lost consciousness in the car. Son brought her here where teleneuro evaluated her in the ER. There was concern for TIA versus CVA versus complex migraine. CTA of the head and neck, MRI of the brain, and MRI of the brain were all relatively benign. Headache was improved with resolution of her right sided weakness. She is discharged home in good, stable condition for follow-up with her PCP and neurology. She is on Topamax for consideration of complex migraines.
--- NOTE | 2024-05-17 14:53 | MRI ---
EXAM: MAGNETIC RESONANCE ANGIOGRAPHY OF THE BRAIN WITH 3-D REFORMATIONS HISTORY: RIGHT SIDED WEAKNESS/ HX OF STROKE; COMPARISON: None. TECHNIQUE: 3-D [id number] magnetic resonance angiography of the cerebral vasculature was performed with mult iplanar reformatted maximum intensity projections. FINDINGS: There is preserved flow related enhancement in the anterior and posterior circulation without evidenc e of occlusion, flow-limiting stenosis, aneurysm, or malformation. IMPRESSION: MRA of the brain is within normal limits. THIS IS AN ELECTRONICALLY VERIFIED FINAL REPORT 05/17/2024 2:50 PM - Electronically signed by Esdras Gómez
== END 2024-05-13 12:00 | disposition home or self-care (01) ==
LOC: ER 10:33 → MED/SURG 10:33
PROVIDERS: ADMIT Internal Medicine; ATTEND Internal Medicine
DX: R13.11 Dysphagia, oral phase; E87.1 Hypo-osmolality and hyponatremia; R51.9 Headache, unspecified; I10 Essential (primary) hypertension; I63.89 Other cerebral infarction; R55 Syncope and collapse; E11.65 Type 2 diabetes mellitus with hyperglycemia; F41.1 Generalized anxiety disorder; R94.31 Abnormal electrocardiogram [ECG] [EKG]; Z86.73 Personal history of transient ischemic attack (TIA), and cerebral infarction without residual deficits; R40.4 Transient alteration of awareness; M62.81 Muscle weakness (generalized)